=== PATIENT | female | born 1955 | race Caucasian/White ===

== ENCOUNTER 2018-01-23 13:48 | Day surgery (SDC) | payer OTHER ==
[2018-01-23 15:58] LABS: Automated BF WBC Count 0.213 K/mm3 (0-999); Body Fluid WBC Count 213 /mm3 (0-999)
[2018-01-23 16:00] LABS: Appearance, Body Fluid Hazy (Clear); Color, Body Fluid L Yellow (None-Yellow)
[2018-01-23 16:11] LABS: RBC Count, Body Fluid 226 /mm3 (0-0)
[2018-01-23 16:13] LABS: Total Cell Count, Body Fluid 100
[2018-01-23 16:34] LABS: Albumin, Body Fluid 0.4 g/dL
== END 2018-01-23 23:41 | disposition home or self-care (01) ==
LOC: US 13:48
PROVIDERS: Internal Medicine Gastroenterology
PROC: 0W9G3ZZ Drainage of Peritoneal Cavity, Percutaneous Approach (ICD-10-PCS; principal; 2018-01-23)
DX: R18.8 Other ascites (principal); K74.60 Unspecified cirrhosis of liver; E66.01 Morbid (severe) obesity due to excess calories; E03.9 Hypothyroidism, unspecified; I10 Essential (primary) hypertension
CPT/HCPCS: 49083; 82042; 89051

== ENCOUNTER 2018-03-06 10:30 | Day surgery (SDC) | payer OTHER | END 2018-03-06 22:57 | disposition home or self-care (01) | LOC: US 10:30 | DX: R18.8 Other ascites (principal); K74.60 Unspecified cirrhosis of liver | CPT/HCPCS: 76705 ==

== ENCOUNTER 2018-07-01 14:34 | Day surgery (SDC) | payer OTHER ==
[~2018-07-01 14:34] MED LIST: FURO40 PO; GLUCOSAMINE CH1 EAC3 PO; HYDHCL25 PO; IBU800 MG PO; LISI5 PO; LORA1 PO; Lovastatin10 MG PO; Omeprazole20 M1 PO; POTA10T PO; SPIR50 PO; TIZANIDINE HCL2 MG PO
== END 2018-07-01 22:42 | disposition home or self-care (01) ==
LOC: US 14:34
DX: K74.60 Unspecified cirrhosis of liver (principal); R18.8 Other ascites
CPT/HCPCS: 49083

== ENCOUNTER 2018-12-28 15:06 | Day surgery (SDC) | payer OTHER | END 2018-12-28 15:07 | disposition home or self-care (01) | LOC: US 15:06 | DX: R18.8 Other ascites (principal); K74.60 Unspecified cirrhosis of liver; Z53.09 Procedure and treatment not carried out because of other contraindication | CPT/HCPCS: 76705 ==

== ENCOUNTER 2019-03-23 09:48 | Day surgery (SDC) | payer OTHER ==
[~2019-03-23] VITALS: Ht 172.7 cm; Wt 122.4 kg
[2019-03-23] MEDS ORDERED: Inderal40 MG (10:21)
--- NOTE | 2019-03-23 10:34 | NUR ---
03/23/19 1034 Jayna Carter PATIENT HAS SCAB ON BRIDGE OF NOSE BETWEEN EYES, PER PATIENT SHE FELL A COUPLE OF DAYS AGO. PATIENT HAS A BRUISE ON HER NOSE WHERE IT APPEARS HER GLASSES WOULD SIT, THIS IS ALSO FROM THE FALL. PATIENT ALSO STATES THE HER RIBS ON HER LEFT SIDE ALSO HURT, ALSO RELATED TO THE FALL. PATIENT DOES STATE THAT SHE WILL BE ABLE TO LAY ON HER LEFT SIDE "WITH ENOUGH SEDATION."
--- NOTE | 2019-03-23 11:52 | NUR ---
03/23/19 1152 Vanessa Juarez WHEN ASKED IF PT. HAD ANY PAIN, PT. VERBALIZES "FEELS LIKE HEARTBURN." PT. ALSO A LITTLE NAUSEATED, ORDER GIVEN FOR PEDRO VASQUEZ GIVEN 1115. 1121 PT. STATES "NOT TOO BAD" WHEN ASKED IF SHE WAS STILL NAUSEATED. PT. WANTED HER CRANBERRY JUICE. WHEN DRINKING HER CRANBERRY JUICE, SHE STATED "THAT FEELS GOOD". PT. CAME IN WITH BODY HURTING. PT. VERBALIZED FALLING ON HER FACE & ALSO HURT HER SIDE.
== END 2019-03-23 11:35 | disposition home or self-care (01) ==
LOC: ORSCSDS 09:48
PROVIDERS: Internal Medicine Gastroenterology
PROC: 06L38CZ Occlusion of Esophageal Vein with Extraluminal Device, Via Natural or Artificial Opening Endoscopic (ICD-10-PCS; principal; 2019-03-23 11:00)
DX: K74.60 Unspecified cirrhosis of liver (principal); I85.00 Esophageal varices without bleeding; K76.6 Portal hypertension; K31.89 Other diseases of stomach and duodenum; I10 Essential (primary) hypertension; K21.9 Gastro-esophageal reflux disease without esophagitis; E66.01 Morbid (severe) obesity due to excess calories; Z68.41 Body mass index [BMI] 40.0-44.9, adult; Z79.899 Other long term (current) drug therapy
CPT/HCPCS: J2405; J2704; J7120

== ENCOUNTER 2019-10-19 11:32 | Day surgery (SDC) | payer OTHER ==
[~2019-10-19] VITALS: Ht 167.6 cm; Wt 123.8 kg
[~2019-10-19 11:32] MED LIST changes: +ALENDRONAT70 MG/75 M PO; +ELIQUIS5 MG PO; +Inderal 20 mg T20 MG PO; +Inderal40 MG; +LACT10SY PO; +RIFA550T2 PO
== END 2019-10-19 13:38 | disposition home or self-care (01) ==
LOC: ORSCSDS 11:32
PROVIDERS: Internal Medicine Gastroenterology
PROC: 0DBN8ZX Excision of Sigmoid Colon, Via Natural or Artificial Opening Endoscopic, Diagnostic (ICD-10-PCS; principal; 2019-10-19 12:45)
DX: D50.9 Iron deficiency anemia, unspecified (principal); Z86.010 Personal history of colon polyps; D12.5 Benign neoplasm of sigmoid colon; K57.30 Diverticulosis of large intestine without perforation or abscess without bleeding; K74.60 Unspecified cirrhosis of liver; I10 Essential (primary) hypertension; E66.01 Morbid (severe) obesity due to excess calories; Z68.41 Body mass index [BMI] 40.0-44.9, adult; K76.0 Fatty (change of) liver, not elsewhere classified; F17.210 Nicotine dependence, cigarettes, uncomplicated; Z79.899 Other long term (current) drug therapy
CPT/HCPCS: 88305; J2250; J2704; J7120

== ENCOUNTER → 2019-12-04 | Outpatient (CLI) | payer OTHER | END | disposition home or self-care (01) | LOC: LAB SHORT 15:20 → LAB 15:20 | DX: L08.9 Local infection of the skin and subcutaneous tissue, unspecified (principal) | CPT/HCPCS: 87070; 87075; 87077; 87147; 87186; 87205 ==

== ENCOUNTER 2019-12-22 09:55 | Day surgery (SDC) | payer OTHER ==
[~2019-12-22] VITALS: Ht 172.7 cm; Wt 121.8 kg
--- NOTE | 2019-12-22 11:23 | NUR ---
12/22/19 1123 Fanny Forrester PT VERY ANXIOUS IN PREOP. DR SHIPMAN, ANESTHESIOLOGIST AND DR ROSS IN TO SEE PT. VERSED 2MG IV GIVEN PER DR SHIPMAN. PT MONITERED VIA PULSE OXIMETRY. CALL LIGHT WITHIN REACH. SPOUSE TATA AT BEDSIDE. PT STATES SHE FEELS MUCH MORE RELAXED. YAWNING AND ON HER PHONE AT THIS TIME.
== END 2019-12-22 12:32 | disposition home or self-care (01) ==
LOC: ORSCSDS 09:55
PROVIDERS: Internal Medicine Gastroenterology
PROC: 0DB68ZX Excision of Stomach, Via Natural or Artificial Opening Endoscopic, Diagnostic (ICD-10-PCS; principal; 2019-12-22 11:00)
DX: K74.60 Unspecified cirrhosis of liver (principal); I85.00 Esophageal varices without bleeding; I10 Essential (primary) hypertension; F41.9 Anxiety disorder, unspecified; E66.9 Obesity, unspecified; Z68.41 Body mass index [BMI] 40.0-44.9, adult; Z79.01 Long term (current) use of anticoagulants; Z79.899 Other long term (current) drug therapy
CPT/HCPCS: 88305; 88342; J2250; J2704; J7120

== ENCOUNTER 2020-04-21 10:27 | Day surgery (SDC) | payer OTHER | END 2020-04-21 22:56 | disposition home or self-care (01) | LOC: US 10:27 | DX: K74.60 Unspecified cirrhosis of liver (principal); R18.8 Other ascites; D50.9 Iron deficiency anemia, unspecified; I10 Essential (primary) hypertension; M17.12 Unilateral primary osteoarthritis, left knee; G89.29 Other chronic pain; M54.5 Low back pain; F17.210 Nicotine dependence, cigarettes, uncomplicated; E66.9 Obesity, unspecified; Z68.42 Body mass index [BMI] 45.0-49.9, adult; Z79.01 Long term (current) use of anticoagulants; Z79.899 Other long term (current) drug therapy | CPT/HCPCS: 76705 ==

== ENCOUNTER 2020-07-19 12:53 | Emergency (ER) | payer OTHER ==
[~2020-07-19] VITALS: Ht 170.2 cm; Wt 122.5 kg
[2020-07-19 13:24] LABS: BASOPHILS ABSOLUTE AUTO 0.08 K/mm3 (0.00-0.23); BASOPHILS PERCENT AUTO 1 % (0-2); EOSINOPHILS ABSOLUTE AUTO 0.13 K/mm3 (0.00-0.68); EOSINOPHILS PERCENT AUTO 2 % (0-6); Hematocrit 44.1 % (33.0-51.0); IMMATURE GRAN ABSOLUTE AUTO 0.01 K/mm3 (0.00-0.10); IMMATURE GRAN PERCENT AUTO 0 % (0-1); LYMPHOCYTES ABSOLUTE AUTO 1.55 K/mm3 (0.84-5.20); LYMPHOCYTES PERCENT AUTO 23 % (21-46); MONOCYTES ABSOLUTE AUTO 0.79 K/mm3 (0.16-1.47); MONOCYTES PERCENT AUTO 11 % (4-13); Mean Corpuscular HGB 33.8 pg (26.0-34.0); Mean Corpuscular Volume 99 fL (80-100); Mean Platelet Volume 9.7 fL (9.1-12.4); NEUTROPHILS ABSOLUTE AUTO 4.34 K/mm3 (1.96-9.15); NEUTROPHILS PERCENT AUTO 63 % (41-73); Platelet Count 148 K/mm3 (150-400); RDW Coefficient Variation 15.7 % (11.7-14.2); RDW Standard Deviation 57.6 fL (35.1-46.3); Red Blood Cell Count 4.44 M/mm3 (3.80-5.20)
[2020-07-19 13:56] LABS: Alanine Aminotransfer (ALT/SGP 27 U/L (12-78); Albumin, Blood 2.7 g/dL (3.4-5.0); Albumin/Globulin Ratio 0.5 (0.8-1.8); Alk Phos 178 U/L (50-136); Anion Gap 7 mmol/L (6-16); Aspartate Aminotrans (AST/SGOT 59 U/L (12-37); Bilirubin, Total 2.4 mg/dL (0.1-1.0); Blood Urea Nitrogen 11 mg/dL (8-24); Bun/Creatinine Ratio 13.5 (12.0-20.0); CO2, Blood 25 mmol/L (21-32); Calcium, Blood 8.3 mg/dL (8.5-10.1); Chloride, Blood 105 mmol/L (98-108); Creatinine, Blood 0.81 mg/dL (0.40-1.00); Globulin, Blood 5.1 g/dL (2.2-4.0); Glomerular Filtration Rate >60 (60-); Glucose, Blood 129 mg/dL (70-99); Potassium, Blood 4.1 mmol/L (3.5-5.5); Sodium, Blood 137 mmol/L (136-145); Total Protein, Blood 7.8 g/dL (6.4-8.2); Troponin I <0.015 ng/mL (0.000-0.040)
[2020-07-19 17:29] LABS: Influenza A, PCR NEGATIVE (NEGATIVE); Influenza B, PCR NEGATIVE (NEGATIVE); Resp Syncytial Virus, PCR NEGATIVE (NEGATIVE); SARS-Cov-2 (COVID-19) PCR, MMC NEGATIVE (NEGATIVE)
== END 2020-07-19 16:55 | disposition home or self-care (01) ==
LOC: ER 12:53
PROVIDERS: Emergency Medicine; Physician Assistant
DX: J90 Pleural effusion, not elsewhere classified (principal); K76.9 Liver disease, unspecified; I10 Essential (primary) hypertension; F17.210 Nicotine dependence, cigarettes, uncomplicated; Z20.822 Contact with and (suspected) exposure to COVID-19; Z79.01 Long term (current) use of anticoagulants; Z79.899 Other long term (current) drug therapy
CPT/HCPCS: 0241U; 36415; 71045; 80053; 84484; 85025; 93005; 93010; 99285-25

== ENCOUNTER 2020-07-20 09:15 | Day surgery (SDC) | payer OTHER | END 2020-07-20 22:52 | disposition home or self-care (01) | LOC: US 09:15 | DX: J90 Pleural effusion, not elsewhere classified (principal) | CPT/HCPCS: 32555; 71045 ==

== ENCOUNTER 2021-04-25 15:12 | Emergency (ER) | payer MEDICARE, OTHER ==
[~2021-04-25] VITALS: Ht 170.2 cm; Wt 126.5 kg
[2021-04-25 15:58] LABS: BASOPHILS ABSOLUTE AUTO 0.07 K/mm3 (0.00-0.23); BASOPHILS PERCENT AUTO 1 % (0-2); EOSINOPHILS ABSOLUTE AUTO 0.16 K/mm3 (0.00-0.68); EOSINOPHILS PERCENT AUTO 2 % (0-6); Hematocrit 43.3 % (33.0-51.0); Hemoglobin 14.4 g/dL (11.5-16.0); IMMATURE GRAN ABSOLUTE AUTO 0.02 K/mm3 (0.00-0.10); IMMATURE GRAN PERCENT AUTO 0 % (0-1); LYMPHOCYTES ABSOLUTE AUTO 1.66 K/mm3 (0.84-5.20); LYMPHOCYTES PERCENT AUTO 19 % (21-46); MONOCYTES ABSOLUTE AUTO 1.18 K/mm3 (0.16-1.47); MONOCYTES PERCENT AUTO 13 % (4-13); Mean Corpuscular HGB 31.2 pg (26.0-34.0); Mean Corpuscular HGB Conc 33.3 g/dL (31.5-36.5); Mean Corpuscular Volume 94 fL (80-100); Mean Platelet Volume 9.4 fL (9.1-12.4); NEUTROPHILS ABSOLUTE AUTO 5.88 K/mm3 (1.96-9.15); NEUTROPHILS PERCENT AUTO 66 % (41-73); Platelet Count 188 K/mm3 (150-400); RDW Coefficient Variation 15.9 % (11.7-14.2); RDW Standard Deviation 54.2 fL (35.1-46.3); Red Blood Cell Count 4.62 M/mm3 (3.80-5.20); White Blood Cell Count 8.97 K/mm3 (4.00-11.30)
[2021-04-25 16:14] LABS: International Normalized Ratio 1.3; Prothrombin Time Results 13.4 Sec (9.7-11.5)
[2021-04-25 16:31] LABS: Alanine Aminotransfer (ALT/SGP 21 U/L (12-78); Albumin, Blood 2.6 g/dL (3.4-5.0); Albumin/Globulin Ratio 0.5 (0.8-1.8); Alk Phos 141 U/L (50-136); Anion Gap 9 mmol/L (6-16); Aspartate Aminotrans (AST/SGOT 27 U/L (12-37); Bilirubin, Total 1.5 mg/dL (0.1-1.0); Blood Urea Nitrogen 14 mg/dL (8-24); CO2, Blood 22 mmol/L (21-32); Calcium, Blood 8.7 mg/dL (8.5-10.1); Chloride, Blood 106 mmol/L (98-108); Creatinine, Blood 0.94 mg/dL (0.40-1.00); Globulin, Blood 5.1 g/dL (2.2-4.0); Glomerular Filtration Rate >60 (60-); Glucose, Blood 156 mg/dL (70-99); Potassium, Blood 3.5 mmol/L (3.5-5.5); Sodium, Blood 137 mmol/L (136-145); Total Protein, Blood 7.7 g/dL (6.4-8.2)
== END 2021-04-25 18:08 | disposition home or self-care (01) ==
LOC: ER 15:12
PROVIDERS: Physician Assistant
DX: K74.60 Unspecified cirrhosis of liver (principal); J90 Pleural effusion, not elsewhere classified; I10 Essential (primary) hypertension; F17.210 Nicotine dependence, cigarettes, uncomplicated; Z79.899 Other long term (current) drug therapy
CPT/HCPCS: 36415; 80053; 83690; 85025; 85610; 99284-25

== ENCOUNTER 2021-04-27 10:27 | Emergency (ER) | payer MEDICARE, OTHER ==
[~2021-04-27] VITALS: Ht 170.2 cm; Wt 124.7 kg
[2021-04-27 13:18] LABS: BASOPHILS ABSOLUTE AUTO 0.07 K/mm3 (0.00-0.23); BASOPHILS PERCENT AUTO 1 % (0-2); EOSINOPHILS ABSOLUTE AUTO 0.13 K/mm3 (0.00-0.68); EOSINOPHILS PERCENT AUTO 2 % (0-6); Hematocrit 38.9 % (33.0-51.0); Hemoglobin 12.8 g/dL (11.5-16.0); IMMATURE GRAN ABSOLUTE AUTO 0.02 K/mm3 (0.00-0.10); IMMATURE GRAN PERCENT AUTO 0 % (0-1); LYMPHOCYTES ABSOLUTE AUTO 1.35 K/mm3 (0.84-5.20); LYMPHOCYTES PERCENT AUTO 19 % (21-46); MONOCYTES ABSOLUTE AUTO 0.84 K/mm3 (0.16-1.47); MONOCYTES PERCENT AUTO 12 % (4-13); Mean Corpuscular HGB 30.7 pg (26.0-34.0); Mean Corpuscular HGB Conc 32.9 g/dL (31.5-36.5); Mean Corpuscular Volume 93 fL (80-100); Mean Platelet Volume 9.2 fL (9.1-12.4); NEUTROPHILS PERCENT AUTO 66 % (41-73); Platelet Count 145 K/mm3 (150-400); RDW Coefficient Variation 15.6 % (11.7-14.2); RDW Standard Deviation 53.3 fL (35.1-46.3); Red Blood Cell Count 4.17 M/mm3 (3.80-5.20); White Blood Cell Count 7.01 K/mm3 (4.00-11.30)
[2021-04-27 13:28] LABS: Alanine Aminotransfer (ALT/SGP 18 U/L (12-78); Albumin, Blood 2.3 g/dL (3.4-5.0); Albumin/Globulin Ratio 0.5 (0.8-1.8); Alk Phos 118 U/L (50-136); Anion Gap 5 mmol/L (6-16); Aspartate Aminotrans (AST/SGOT 26 U/L (12-37); Bilirubin, Total 1.4 mg/dL (0.1-1.0); Blood Urea Nitrogen 14 mg/dL (8-24); Bun/Creatinine Ratio 15.9 (12.0-20.0); CO2, Blood 25 mmol/L (21-32); Calcium, Blood 8.7 mg/dL (8.5-10.1); Chloride, Blood 108 mmol/L (98-108); Creatinine, Blood 0.88 mg/dL (0.40-1.00); Globulin, Blood 4.6 g/dL (2.2-4.0); Glomerular Filtration Rate >60 (60-); Glucose, Blood 158 mg/dL (70-99); Potassium, Blood 3.9 mmol/L (3.5-5.5); Sodium, Blood 138 mmol/L (136-145); Total Protein, Blood 6.9 g/dL (6.4-8.2)
== END 2021-04-27 15:13 | disposition home or self-care (01) ==
LOC: ER 10:27
PROVIDERS: Student in an Organized Health Care Education/Training Program
DX: J90 Pleural effusion, not elsewhere classified (principal); Z79.899 Other long term (current) drug therapy; I10 Essential (primary) hypertension; F17.210 Nicotine dependence, cigarettes, uncomplicated
CPT/HCPCS: 32555; 36415; 71045; 71046; 80053; 85025

== ENCOUNTER 2021-05-11 12:06 | Emergency (ER) | payer MEDICARE, OTHER ==
[~2021-05-11] VITALS: Ht 170.2 cm; Wt 126.5 kg
[2021-05-11 13:25] LABS: BASOPHILS ABSOLUTE AUTO 0.07 K/mm3 (0.00-0.23); BASOPHILS PERCENT AUTO 1 % (0-2); EOSINOPHILS ABSOLUTE AUTO 0.13 K/mm3 (0.00-0.68); EOSINOPHILS PERCENT AUTO 2 % (0-6); Hematocrit 45.4 % (33.0-51.0); Hemoglobin 15.1 g/dL (11.5-16.0); IMMATURE GRAN ABSOLUTE AUTO 0.03 K/mm3 (0.00-0.10); IMMATURE GRAN PERCENT AUTO 0 % (0-1); LYMPHOCYTES ABSOLUTE AUTO 1.08 K/mm3 (0.84-5.20); LYMPHOCYTES PERCENT AUTO 16 % (21-46); MONOCYTES PERCENT AUTO 10 % (4-13); Mean Corpuscular HGB 30.7 pg (26.0-34.0); Mean Corpuscular HGB Conc 33.3 g/dL (31.5-36.5); Mean Corpuscular Volume 92 fL (80-100); Mean Platelet Volume 9.3 fL (9.1-12.4); NEUTROPHILS PERCENT AUTO 71 % (41-73); Platelet Count 166 K/mm3 (150-400); RDW Coefficient Variation 15.7 % (11.7-14.2); RDW Standard Deviation 52.9 fL (35.1-46.3); Red Blood Cell Count 4.92 M/mm3 (3.80-5.20); White Blood Cell Count 6.91 K/mm3 (4.00-11.30)
[2021-05-11] MEDS ORDERED: Actigall300 MG PO (13:26)
[2021-05-11 13:41] LABS: International Normalized Ratio 1.19; Prothrombin Time Results 12.4 Sec (9.7-11.5)
[2021-05-11 13:51] LABS: Alanine Aminotransfer (ALT/SGP 28 U/L (12-78); Albumin, Blood 2.8 g/dL (3.4-5.0); Albumin/Globulin Ratio 0.5 (0.8-1.8); Alk Phos 130 U/L (50-136); Anion Gap 9 mmol/L (6-16); Aspartate Aminotrans (AST/SGOT 34 U/L (12-37); Bilirubin, Total 1.9 mg/dL (0.1-1.0); Blood Urea Nitrogen 17 mg/dL (8-24); Bun/Creatinine Ratio 18.8 (12.0-20.0); CO2, Blood 24 mmol/L (21-32); Chloride, Blood 104 mmol/L (98-108); Creatinine, Blood 0.91 mg/dL (0.40-1.00); Globulin, Blood 5.3 g/dL (2.2-4.0); Glomerular Filtration Rate >60 (60-); Glucose, Blood 160 mg/dL (70-99); Potassium, Blood 3.6 mmol/L (3.5-5.5); Sodium, Blood 137 mmol/L (136-145); Total Protein, Blood 8.1 g/dL (6.4-8.2)
[2021-05-11 15:55] LABS: Influenza A, PCR NEGATIVE (NEGATIVE); Influenza B, PCR NEGATIVE (NEGATIVE); Resp Syncytial Virus, PCR NEGATIVE (NEGATIVE); SARS-Cov-2 (COVID-19) PCR, MMC NEGATIVE (NEGATIVE)
[2021-05-11] MEDS ORDERED: BENZ100A PO (17:29)
== END 2021-05-11 17:55 | disposition home or self-care (01) ==
LOC: ER 12:06
PROVIDERS: Emergency Medicine; Physician Assistant
DX: J90 Pleural effusion, not elsewhere classified (principal); K74.60 Unspecified cirrhosis of liver; I10 Essential (primary) hypertension; F17.210 Nicotine dependence, cigarettes, uncomplicated; Z79.899 Other long term (current) drug therapy; Z79.01 Long term (current) use of anticoagulants
CPT/HCPCS: 0241U; 32555; 36415; 71045; 71046; 80053; 83880; 84484; 85025; 85610; 85730; 93005; 93010; 99285-25; J7030

== ENCOUNTER 2021-07-04 07:36 | Day surgery (SDC) | payer MEDICARE, OTHER ==
[~2021-07-04] VITALS: Ht 170.2 cm; Wt 118.7 kg
[~2021-07-04 07:36] MED LIST changes: +Actigall300 MG PO; +BENZ100A PO
== END 2021-07-04 09:10 | disposition home or self-care (01) ==
LOC: ORSCSDS 07:36
PROVIDERS: Internal Medicine Gastroenterology
PROC: 0DJ08ZZ Inspection of Upper Intestinal Tract, Via Natural or Artificial Opening Endoscopic (ICD-10-PCS; principal; 2021-07-04 08:45)
DX: K74.60 Unspecified cirrhosis of liver (principal); Z13.810 Encounter for screening for upper gastrointestinal disorder; I85.00 Esophageal varices without bleeding; K76.6 Portal hypertension; K31.89 Other diseases of stomach and duodenum; I10 Essential (primary) hypertension; E66.9 Obesity, unspecified; Z68.41 Body mass index [BMI] 40.0-44.9, adult; F17.210 Nicotine dependence, cigarettes, uncomplicated; Z79.899 Other long term (current) drug therapy; F41.8 Other specified anxiety disorders; Z79.01 Long term (current) use of anticoagulants
CPT/HCPCS: J2250; J2370; J2405; J2704; J7120

== ENCOUNTER 2021-08-21 13:28 | Day surgery (SDC) | payer MEDICARE, OTHER | END 2021-08-21 23:59 | disposition home or self-care (01) | LOC: US 13:28 | DX: J90 Pleural effusion, not elsewhere classified (principal); K74.60 Unspecified cirrhosis of liver; K76.0 Fatty (change of) liver, not elsewhere classified; R18.8 Other ascites | CPT/HCPCS: 32555; 71045 ==

== ENCOUNTER 2021-09-04 14:26 | Day surgery (SDC) | payer MEDICARE, OTHER | END 2021-09-04 23:07 | disposition home or self-care (01) | LOC: US 14:26 | DX: J90 Pleural effusion, not elsewhere classified (principal); K74.60 Unspecified cirrhosis of liver; K76.0 Fatty (change of) liver, not elsewhere classified; R18.8 Other ascites | CPT/HCPCS: 32555; 71045 ==

== ENCOUNTER 2021-09-08 16:44 | Inpatient (IN) | payer MEDICARE, OTHER ==
[~2021-09-08] VITALS: Ht 170.2 cm; Wt 107.2 kg
[2021-09-08 17:17] LABS: Source, Urine Clean Catch
[2021-09-08 17:26] LABS: Appearance, Urine Clear (Clear); Bilirubin, Urine Neg (Neg); Blood, Urine 1+ (Neg); Color, Urine Yellow (P-Yellow); Glucose Qualitative, Urine Neg (Neg); Ketones, Urine Neg (Neg); Leukocyte Esterase, Urine Neg (Neg); Nitrite, Urine Neg (Neg); Protein, Urine Neg (Neg); Specific Gravity, Urine 1.015 (1.003-1.022); Urobilinogen, Urine 2+ (Normal)
[2021-09-08 17:29] LABS: BASOPHILS ABSOLUTE AUTO 0.11 K/mm3 (0.00-0.23); BASOPHILS PERCENT AUTO 1 % (0-2); EOSINOPHILS ABSOLUTE AUTO 0.76 K/mm3 (0.00-0.68); EOSINOPHILS PERCENT AUTO 5 % (0-6); Hematocrit 41.2 % (33.0-51.0); IMMATURE GRAN ABSOLUTE AUTO 0.14 K/mm3 (0.00-0.10); IMMATURE GRAN PERCENT AUTO 1 % (0-1); LYMPHOCYTES ABSOLUTE AUTO 2.03 K/mm3 (0.84-5.20); LYMPHOCYTES PERCENT AUTO 13 % (21-46); MONOCYTES ABSOLUTE AUTO 1.81 K/mm3 (0.16-1.47); MONOCYTES PERCENT AUTO 11 % (4-13); Mean Corpuscular HGB 31.5 pg (26.0-34.0); Mean Corpuscular Volume 93 fL (80-100); Mean Platelet Volume 8.8 fL (9.1-12.4); NEUTROPHILS PERCENT AUTO 70 % (41-73); Platelet Count 158 K/mm3 (150-400); RDW Coefficient Variation 18.5 % (11.7-14.2); RDW Standard Deviation 61.7 fL (35.1-46.3); Red Blood Cell Count 4.44 M/mm3 (3.80-5.20); White Blood Cell Count 16.15 K/mm3 (4.00-11.30)
[2021-09-08 17:38] LABS: White Blood Cells, Urine 0-2 /hpf (0-5)
[2021-09-08 17:39] LABS: Bacteria Mod /hpf; Squamous Epithelial Cells Few /hpf (Few)
[2021-09-08] MEDS ORDERED: Enulose10 GM/15 M PO (17:40)
[2021-09-08 17:47] LABS: Alanine Aminotransfer (ALT/SGP 47 U/L (12-78); Albumin, Blood 2.3 g/dL (3.4-5.0); Albumin/Globulin Ratio 0.5 (0.8-1.8); Alk Phos 200 U/L (50-136); Anion Gap 4 mmol/L (6-16); Aspartate Aminotrans (AST/SGOT 46 U/L (12-37); Bilirubin, Total 3.3 mg/dL (0.1-1.0); Blood Urea Nitrogen 18 mg/dL (8-24); Bun/Creatinine Ratio 21.1 (12.0-20.0); CO2, Blood 26 mmol/L (21-32); Calcium, Blood 8.2 mg/dL (8.5-10.1); Chloride, Blood 102 mmol/L (98-108); Creatinine, Blood 0.85 mg/dL (0.40-1.00); Globulin, Blood 4.5 g/dL (2.2-4.0); Glomerular Filtration Rate >60 (60-); Glucose, Blood 116 mg/dL (70-99); Potassium, Blood 3.7 mmol/L (3.5-5.5); Sodium, Blood 132 mmol/L (136-145); Total Protein, Blood 6.8 g/dL (6.4-8.2)
--- NOTE | 2021-09-08 23:31 | NUR ---
PATIENT IS A NEW ADMIT FROM THE ED. FOUR PERSON TRANSFER FROM [facility] TO BED. AXOX 3 WITH CONFUSION. KNOWS PERSON, PLACE, YEAR, NO MONTH. REPEATS QUESTIONS WHEN ANSWER ALREADY GIVEN. ON ROOM AIR. BP SOFT 81/59. ORDER FOR MIDODRINE 10 MG X ONE GIVEN. BOLUS NS 250 mL IN PROGRESS. ORIENTED TO ROOM AND CALL LIGHT SYSTEM. NIECE PRESENT ON ADMIT AND SIGNIFICANT OTHER ON PHONE TO HELP WITH ADMISSION QUESTIONS, PSORIASIS SCATTERED T/O CHEST/ABDOMEN. BRUISNG T/O BUE. REPORTS NO TV AFTER ASSESSMENT AND WANTS TO SLEEP. CALL LIGHT IN REACH.
--- NOTE | 2021-09-09 04:15 | NUR ---
SHIFT SUMMARY PATIENT AXOX 3 WITH CONFUSION ASKING QUESTIONS ALREADY ANSWERED. FORGETFUL. TWO ASSIST W/FWW TO BSC. BP 81/59 WITH ED RN REPORTING PATIENT BASELINE IS SBP 70'S-80'S. ED DOCTOR AWARE. MIDODRINE 10 MG GIVEN X ONE ON ADMIT PER ORDERS. NS BOLUS 250 mL GIVEN X ONE ON ADMIT. SCHEDULE ENULOSE. PATIENT REPORTS ON TWO DIURECTICS. PSORIASIS SCATTER T/O CHEST/ABDOMEN. DENIES PAIN, SOB, AND N/V. AFEBRILE. PATIENT ABLE TO SLEEP MOST OF SHIFT. CALL LIGHT IN REACH. BED IN LOWEST POSITION. WILL CONTINUE TO MONITOR UNTIL DAY SHIFT NURSE ASSUMES CARE.
[2021-09-09 05:24] LABS: Hematocrit 36.2 % (33.0-51.0); Hemoglobin 12.5 g/dL (11.5-16.0); Mean Corpuscular HGB 31.6 pg (26.0-34.0); Mean Corpuscular HGB Conc 34.5 g/dL (31.5-36.5); Mean Corpuscular Volume 92 fL (80-100); Mean Platelet Volume 8.4 fL (9.1-12.4); Platelet Count 111 K/mm3 (150-400); RDW Coefficient Variation 18.2 % (11.7-14.2); RDW Standard Deviation 60.3 fL (35.1-46.3); Red Blood Cell Count 3.95 M/mm3 (3.80-5.20)
--- NOTE | 2021-09-09 06:04 | NUR ---
BP 73/[address] ANDREW ORDERED NS 500 mL BOLUS X ONE. BP 81/50 ON ADMIT AND 250 mL NS BOLUS GIVEN AND MIDODRINE 10 MG X ONE.
--- NOTE | 2021-09-09 08:15 | NUR ---
CALLED DR SCHMITZ- PT BP LOW AND GETTING LOWER. PT ASYMPPTOMATIC AT THIS TIME. ORDER RECIEVED FOR AN ADDITIONAL 500ML FLUID BOLUS. RUNNING NOW.
--- NOTE | 2021-09-09 17:24 | NUR ---
SPOKE TO DR SCHMITZ- PPT HAD TWO SOFT FORMED LARGE BM'S THIS MORNING FOLLOWED BY THREE DIFFERENT WATERY STOOLS THIS EVENING. WILL HOLD THIS EVENING LACTULOSE DOSE. OK TO NOT GIVE ANY MORE LACTULOSE TODAY AND RECIEVED AN ORDER TO CHANGE TO TID DOSING AT 30GM. MALENASO SPOKE TO MD ABOUT THE PT RECENT PRESSURES, DR HENLEY AND WANTS TO TRY NO MORE MIDODRENE NOW THAT PT IS OFF HER PROPRANOLOL DOSE.
--- NOTE | 2021-09-09 19:04 | NUR ---
SHIFT SUMMARY- PT ALERT AND ORIENTED 1PA TO THE BATHROOM. PT HAD LACTULOSE TODAY AND IS NOW HAVING FREQUENT WATERY STOOLS. PT HAS PICKED A COUPLE OF SCABS OFF OF THE MULTIPLE ON HER ABDOMEN AIR QUALITY INSTRUMENT SPECIALIST ASSISTED AND PLACED A MEPILEX OVER THE TWO OPEN AREAS NEAR THE PT NAVEL. PT HAS HAD IMPROVED COGNITION T/O THE SHIFT. SAY DC'D TODAY BY . PT IN THE ROOM IN BED, CALL LIGHT IN REACH NO S&S OF DISTRESS NOTED AT THIS TIME REPORT COMPLETED WITH NIGHT RN.
--- NOTE | 2021-09-10 04:14 | NUR ---
SHIFT SUMMARY PATIENT MENTATION IMPROVED SINCE LAST NOC SHIFT. BP'S IMPROVED T/O SHIFT. 109/60 AND LAST 127/84. ABLE TO COMMUNICATE CLEARLY. AXOX 3 AND ONE ASSIST TO BR. DENIES PAIN, SOB, AND N/V. VSS/AFEBRILE. WATCHED TV AND ON PERSONAL ELECTRONIC DEVICE MOST OF THE SHIFT. SIGNIFICANT OTHER PRESENT AT SHIFT CHANGE. CALL LIGHT IN REACH. BED IN LOWEST POSITION. WILL CONTINUE TO MONITOR UNTIL DAY SHIFT NURSE ASSUMES CARE.
[2021-09-10 05:22] LABS: BASOPHILS ABSOLUTE AUTO 0.14 K/mm3 (0.00-0.23); BASOPHILS PERCENT AUTO 1 % (0-2); EOSINOPHILS ABSOLUTE AUTO 0.98 K/mm3 (0.00-0.68); EOSINOPHILS PERCENT AUTO 5 % (0-6); Hematocrit 36.7 % (33.0-51.0); Hemoglobin 12.4 g/dL (11.5-16.0); IMMATURE GRAN ABSOLUTE AUTO 0.15 K/mm3 (0.00-0.10); IMMATURE GRAN PERCENT AUTO 1 % (0-1); LYMPHOCYTES PERCENT AUTO 12 % (21-46); MONOCYTES ABSOLUTE AUTO 2.16 K/mm3 (0.16-1.47); MONOCYTES PERCENT AUTO 11 % (4-13); Mean Corpuscular HGB 31.4 pg (26.0-34.0); Mean Corpuscular HGB Conc 33.8 g/dL (31.5-36.5); Mean Corpuscular Volume 93 fL (80-100); Mean Platelet Volume 8.4 fL (9.1-12.4); NEUTROPHILS ABSOLUTE AUTO 13.86 K/mm3 (1.96-9.15); NEUTROPHILS PERCENT AUTO 70 % (41-73); Platelet Count 122 K/mm3 (150-400); RDW Coefficient Variation 18.1 % (11.7-14.2); Red Blood Cell Count 3.95 M/mm3 (3.80-5.20); White Blood Cell Count 19.69 K/mm3 (4.00-11.30)
[2021-09-10 05:59] LABS: Alanine Aminotransfer (ALT/SGP 36 U/L (12-78); Albumin, Blood 2.1 g/dL (3.4-5.0); Albumin/Globulin Ratio 0.5 (0.8-1.8); Alk Phos 203 U/L (50-136); Anion Gap 6 mmol/L (6-16); Aspartate Aminotrans (AST/SGOT 32 U/L (12-37); Blood Urea Nitrogen 14 mg/dL (8-24); Bun/Creatinine Ratio 18.7 (12.0-20.0); CO2, Blood 23 mmol/L (21-32); Calcium, Blood 8.3 mg/dL (8.5-10.1); Chloride, Blood 100 mmol/L (98-108); Creatinine, Blood 0.75 mg/dL (0.40-1.00); Globulin, Blood 3.9 g/dL (2.2-4.0); Glomerular Filtration Rate >60 (60-); Glucose, Blood 114 mg/dL (70-99); Magnesium, Blood 2.3 mg/dL (1.6-2.4); Potassium, Blood 4.1 mmol/L (3.5-5.5); Sodium, Blood 129 mmol/L (136-145)
--- NOTE | 2021-09-10 11:15 | NUR ---
PT GIVEN 250 ML BOLUS OF NS DUE TO SBP OF 87. PT BP NOW 122/65. PT A/O X 4 REPORTS SHE DOES NOT HAVE SYMPTOMS OF DIZZISNESS, NO SIGNS OF LETHARGY AT THIS TIME.
[2021-09-10] MEDS ORDERED: SERT25 PO (15:11)
[2021-09-10] MEDS ORDERED: Vitamin D1000 UNI1 PO (15:13)
[2021-09-10] MEDS ORDERED: OYSTER SHELL 51 EACH PO (15:14)
--- NOTE | 2021-09-10 15:59 | NUR ---
PT FAMILY BROUGHT IN MEDICATION LIST FROM HOME. RECONCILED MEDICATION LIST AND ADDED ZOLOFT IT WAS NOT ON OUR LIST.
--- NOTE | 2021-09-10 17:28 | NUR ---
SHIFT SUMMARY: PT A/O X 4 STANDBY ASSIST, PLEASANT AND COOPERATIVE WITH CARES. PT HAD LOW SBP LESS THAN 90 TODAY. BOLUS OF NS 250 MLS GIVEN AND BP STABLE POST ADMINISTRATION. PT GIVEN LACTULOSE X 2 DOSES TODAY AND HAD 3 BM'S. AFTERNOON DOSE HELD. PT CONTINUES TO IMPROVE. PT DOWN FOR X-RAY AT THIS TIME.
[2021-09-11 05:15] LABS: BASOPHILS ABSOLUTE AUTO 0.09 K/mm3 (0.00-0.23); BASOPHILS PERCENT AUTO 1 % (0-2); EOSINOPHILS ABSOLUTE AUTO 0.69 K/mm3 (0.00-0.68); EOSINOPHILS PERCENT AUTO 4 % (0-6); Hematocrit 31.4 % (33.0-51.0); Hemoglobin 10.8 g/dL (11.5-16.0); IMMATURE GRAN ABSOLUTE AUTO 0.14 K/mm3 (0.00-0.10); IMMATURE GRAN PERCENT AUTO 1 % (0-1); LYMPHOCYTES ABSOLUTE AUTO 1.73 K/mm3 (0.84-5.20); LYMPHOCYTES PERCENT AUTO 10 % (21-46); MONOCYTES ABSOLUTE AUTO 1.63 K/mm3 (0.16-1.47); MONOCYTES PERCENT AUTO 10 % (4-13); Mean Corpuscular HGB 32.2 pg (26.0-34.0); Mean Corpuscular HGB Conc 34.4 g/dL (31.5-36.5); Mean Corpuscular Volume 94 fL (80-100); Mean Platelet Volume 8.3 fL (9.1-12.4); NEUTROPHILS ABSOLUTE AUTO 12.52 K/mm3 (1.96-9.15); NEUTROPHILS PERCENT AUTO 75 % (41-73); Platelet Count 104 K/mm3 (150-400); RDW Coefficient Variation 18.1 % (11.7-14.2); RDW Standard Deviation 61.1 fL (35.1-46.3); Red Blood Cell Count 3.35 M/mm3 (3.80-5.20)
[2021-09-11 05:46] LABS: Alanine Aminotransfer (ALT/SGP 32 U/L (12-78); Albumin, Blood 1.8 g/dL (3.4-5.0); Albumin/Globulin Ratio 0.5 (0.8-1.8); Alk Phos 183 U/L (50-136); Anion Gap 7 mmol/L (6-16); Aspartate Aminotrans (AST/SGOT 31 U/L (12-37); Bilirubin, Total 3.4 mg/dL (0.1-1.0); Blood Urea Nitrogen 10 mg/dL (8-24); Bun/Creatinine Ratio 14.1 (12.0-20.0); CO2, Blood 20 mmol/L (21-32); Calcium, Blood 8.1 mg/dL (8.5-10.1); Chloride, Blood 101 mmol/L (98-108); Creatinine, Blood 0.71 mg/dL (0.40-1.00); Globulin, Blood 3.4 g/dL (2.2-4.0); Glomerular Filtration Rate >60 (60-); Glucose, Blood 174 mg/dL (70-99); Potassium, Blood 4.3 mmol/L (3.5-5.5); Sodium, Blood 128 mmol/L (136-145); Total Protein, Blood 5.2 g/dL (6.4-8.2)
--- NOTE | 2021-09-11 07:18 | NUR ---
SHIFT SUMMARY AOX3. FORGETFUL. NEEDED FREQUENT REMINDING OF TASKS SHE IS PERFORMING @TIMES. REPORTED SEEING "EARRINGS" IN THE BED, WHEN THE SHEETS WERE WRINKLED. HAVING VISUAL HALLUCINATIONS. VSS. DENIES N/V, DYSPNEA. REPORTED PAIN IN LUQ ABD WITH PRESSURE OR REPOSITIONING IN BED, STATED IT WAS "LIVER PAIN" MEDICATED 1X c TIZANIDINE & PT STILL AWAKE T/O ENTIRE NIGHT, FINALLY FELL ASLEEP THIS AM AROUND 0700. NO BM TONIGHT. CALL LIGHT IN REACH.
--- NOTE | 2021-09-11 19:33 | NUR ---
SHIFT SUMMARY: PT A/OX4 STANDBY ASSIST STEADY ON FEET WITH WALKER. PT PLEASANT AND COOPERATIVE WITH CARE. PT HAD NO BM BY EVENING, MIRALAX ORDERED. PT DENIED SYMPTOMS OF PAIN IN ABD T/OUT THE DAY. ATE WELL AND COMPLIANT WITH FLUID RESTRICTION.
[2021-09-12 05:30] LABS: BASOPHILS PERCENT AUTO 1 % (0-2); EOSINOPHILS ABSOLUTE AUTO 0.78 K/mm3 (0.00-0.68); EOSINOPHILS PERCENT AUTO 6 % (0-6); Hematocrit 32.9 % (33.0-51.0); Hemoglobin 11.3 g/dL (11.5-16.0); IMMATURE GRAN ABSOLUTE AUTO 0.15 K/mm3 (0.00-0.10); IMMATURE GRAN PERCENT AUTO 1 % (0-1); LYMPHOCYTES ABSOLUTE AUTO 1.84 K/mm3 (0.84-5.20); LYMPHOCYTES PERCENT AUTO 14 % (21-46); MONOCYTES ABSOLUTE AUTO 1.39 K/mm3 (0.16-1.47); MONOCYTES PERCENT AUTO 10 % (4-13); Mean Corpuscular HGB 31.8 pg (26.0-34.0); Mean Corpuscular HGB Conc 34.3 g/dL (31.5-36.5); Mean Corpuscular Volume 93 fL (80-100); Mean Platelet Volume 7.9 fL (9.1-12.4); NEUTROPHILS PERCENT AUTO 69 % (41-73); Platelet Count 110 K/mm3 (150-400); RDW Coefficient Variation 18.4 % (11.7-14.2); RDW Standard Deviation 61.4 fL (35.1-46.3); Red Blood Cell Count 3.55 M/mm3 (3.80-5.20); White Blood Cell Count 13.56 K/mm3 (4.00-11.30)
[2021-09-12 05:43] LABS: International Normalized Ratio 1.42; Prothrombin Time Results 14.6 Sec (9.7-11.5)
[2021-09-12 06:04] LABS: Alanine Aminotransfer (ALT/SGP 33 U/L (12-78); Albumin, Blood 1.9 g/dL (3.4-5.0); Albumin/Globulin Ratio 0.5 (0.8-1.8); Alk Phos 192 U/L (50-136); Anion Gap 6 mmol/L (6-16); Aspartate Aminotrans (AST/SGOT 33 U/L (12-37); Bilirubin, Total 2.8 mg/dL (0.1-1.0); Blood Urea Nitrogen 9 mg/dL (8-24); CO2, Blood 24 mmol/L (21-32); Calcium, Blood 7.8 mg/dL (8.5-10.1); Chloride, Blood 102 mmol/L (98-108); Creatinine, Blood 0.75 mg/dL (0.40-1.00); Globulin, Blood 3.5 g/dL (2.2-4.0); Glomerular Filtration Rate >60 (60-); Glucose, Blood 121 mg/dL (70-99); Potassium, Blood 3.5 mmol/L (3.5-5.5); Sodium, Blood 132 mmol/L (136-145); Total Protein, Blood 5.4 g/dL (6.4-8.2)
--- NOTE | 2021-09-12 06:35 | NUR ---
SHIFT SUMMARY AOX4. VSS. NO VISUAL HALLUCINATIONS THIS SHIFT. HAD 2 LRG-MED FORMED BM THIS SHIFT. AMMONIA DECREASED TO 44. REPORTED 5/10 PAIN IN RUQ ABD WITH PALPATION OR PRESSURE, MEDICATED 1X c TIZANIDINE PT STATES PAIN GOES AWAY AFTER REPOSITIONING. PT ABLE TO SLEEP WELL TONIGHT AFTER TAKING MELATONIN. CLEANSED OPEN SCAB, SCRATCH WOUNDS ON ABD & APPLIED CLEAN BANDAGES. POSSIBLE DC HOME TODAY. CALL LIGHT IN REACH & PT ABLE TO MAKE NEEDS KNOWN. WILL MONITOR.
[2021-09-12] MEDS ORDERED: Midodrine HCl2.5 MG PO (13:18)
[2021-09-12] MEDS ORDERED: CEFP200 PO (13:19)
[2021-09-12] MEDS ORDERED: MIRALAX17 GM PO (13:19)
--- NOTE | 2021-09-12 13:55 | NUR ---
Patient is a [facility] patient who was transferred to [facility] on 09/08/2021 due to acute hepatic encephalopathy. Patient is to discharge with resumption of home health orders. Gathered supporting documentation for resumption (face sheet, discharge order, med list, and H&P) and faxed to [facility] for review. No further interventions required. Tonya Beck Referral Liaison
--- NOTE | 2021-09-12 14:24 | NUR ---
DISCHARGE SUMMARY: PT TATA PRESENT DURING DISCUSSION OF DISCHARGE MEDICATIONS AND INSTRUCTIONS. PT AND TATA VU OF INSTRUCTIONS AND MEDICATIONS. PT ASSISTED WITH PACKING BELONGINGS AND GIVEN 1400 MEDICATIONS PRIOR TO LEAVING. PT ESCORTED TO POV VIA WC BY [facility]KE.
--- NOTE | 2021-09-12 16:56 | NUR ---
Per Dr. Clinton discharge appropriate. Patient and did not oppose discharge. Patient discharged home to residence: [address] [facility] Home Health Liaison notified of discharge. Date of discharge: 09/12/2021 Transportation provided by: Family/ [facility] Ordered: none ordered Follow-ups needed: [facility] will contact patient to schedule hospital follow-up visit. Provider/PCP: Dr. Antionette Coles [facility] When: WITHIN 1 WEEK Specialty: Dr. Levi/[facility] Confirmed numbers: Patient [phone] [facility]: [phone] Comment: Explained to patient to contact PCP if any questions regarding medication management, social service needs, and if condition worsens go to Urgent Care/ER. No barriers to discharge. Patient has family support. Explained importance of follow-up appointment for improved health outcomes and to decrease readmission.
== END 2021-09-12 14:15 | disposition home health service (06) | DRG 442 ==
LOC: ER 16:44 → MEDS 16:45
PROVIDERS: Emergency Medicine; Family Medicine; Hospitalist; Nurse Practitioner Acute Care; ADMIT Internal Medicine
DX: K72.00 Acute and subacute hepatic failure without coma (principal); J90 Pleural effusion, not elsewhere classified; K70.30 Alcoholic cirrhosis of liver without ascites; K72.10 Chronic hepatic failure without coma; K21.9 Gastro-esophageal reflux disease without esophagitis; F41.9 Anxiety disorder, unspecified; E78.5 Hyperlipidemia, unspecified; E66.01 Morbid (severe) obesity due to excess calories; Z90.49 Acquired absence of other specified parts of digestive tract; Z98.890 Other specified postprocedural states; Z79.899 Other long term (current) drug therapy; I95.9 Hypotension, unspecified; Z90.710 Acquired absence of both cervix and uterus; Z68.37 Body mass index [BMI] 37.0-37.9, adult
CPT/HCPCS: 36415; 70450; 71045; 71046; 76705; 80053; 81001; 82140; 82947; 83735; 85025; 85027; 85610; 87040; 87086; 93005; 93010; 97116; 97161; 97165; 97535; 99285-25; A9270; G0378; J0696; J7030; J7050

== ENCOUNTER 2021-09-29 11:44 | Emergency (ER) | payer MEDICARE, OTHER ==
[~2021-09-29] VITALS: Ht 170.2 cm; Wt 122.5 kg
[~2021-09-29 11:44] MED LIST changes: +CEFP200 PO; +Enulose10 GM/15 M PO; +MIRALAX17 GM PO; +Midodrine HCl2.5 MG PO; +OYSTER SHELL 51 EACH PO; +SERT25 PO; +Vitamin D1000 UNI1 PO
[2021-09-29 12:36] LABS: BASOPHILS ABSOLUTE AUTO 0.07 K/mm3 (0.00-0.23); BASOPHILS PERCENT AUTO 1 % (0-2); EOSINOPHILS ABSOLUTE AUTO 0.23 K/mm3 (0.00-0.68); EOSINOPHILS PERCENT AUTO 3 % (0-6); Hematocrit 31.8 % (33.0-51.0); Hemoglobin 10.5 g/dL (11.5-16.0); IMMATURE GRAN ABSOLUTE AUTO 0.03 K/mm3 (0.00-0.10); IMMATURE GRAN PERCENT AUTO 0 % (0-1); LYMPHOCYTES ABSOLUTE AUTO 1.15 K/mm3 (0.84-5.20); LYMPHOCYTES PERCENT AUTO 15 % (21-46); MONOCYTES ABSOLUTE AUTO 0.63 K/mm3 (0.16-1.47); MONOCYTES PERCENT AUTO 8 % (4-13); Mean Corpuscular HGB 33.4 pg (26.0-34.0); Mean Corpuscular Volume 101 fL (80-100); Mean Platelet Volume 8.7 fL (9.1-12.4); NEUTROPHILS ABSOLUTE AUTO 5.35 K/mm3 (1.96-9.15); NEUTROPHILS PERCENT AUTO 72 % (41-73); Platelet Count 117 K/mm3 (150-400); RDW Coefficient Variation 20.1 % (11.7-14.2); RDW Standard Deviation 72.9 fL (35.1-46.3); Red Blood Cell Count 3.14 M/mm3 (3.80-5.20); White Blood Cell Count 7.46 K/mm3 (4.00-11.30)
[2021-09-29 12:52] LABS: Alanine Aminotransfer (ALT/SGP 24 U/L (12-78); Albumin, Blood 1.9 g/dL (3.4-5.0); Albumin/Globulin Ratio 0.5 (0.8-1.8); Alk Phos 156 U/L (50-136); Anion Gap 10 mmol/L (6-16); Aspartate Aminotrans (AST/SGOT 36 U/L (12-37); Bilirubin, Total 3.1 mg/dL (0.1-1.0); Blood Urea Nitrogen 9 mg/dL (8-24); Bun/Creatinine Ratio 13.3 (12.0-20.0); CO2, Blood 22 mmol/L (21-32); Calcium, Blood 7.9 mg/dL (8.5-10.1); Chloride, Blood 105 mmol/L (98-108); Creatinine, Blood 0.68 mg/dL (0.40-1.00); Globulin, Blood 3.6 g/dL (2.2-4.0); Glomerular Filtration Rate >60 (60-); Glucose, Blood 161 mg/dL (70-99); Potassium, Blood 3.7 mmol/L (3.5-5.5); Sodium, Blood 137 mmol/L (136-145); Total Protein, Blood 5.5 g/dL (6.4-8.2)
== END 2021-09-29 14:03 | disposition home or self-care (01) ==
LOC: ER 11:44
PROVIDERS: Physician Assistant
DX: K76.9 Liver disease, unspecified (principal); Z79.899 Other long term (current) drug therapy; I10 Essential (primary) hypertension; F17.210 Nicotine dependence, cigarettes, uncomplicated
CPT/HCPCS: 36415; 74177; 80053; 85025; 99284-25; Q9967

== ENCOUNTER 2021-10-02 14:53 | Day surgery (SDC) | payer MEDICARE, OTHER | END 2021-10-02 23:50 | disposition home or self-care (01) | LOC: US 14:53 | DX: J90 Pleural effusion, not elsewhere classified (principal); K74.60 Unspecified cirrhosis of liver; K76.0 Fatty (change of) liver, not elsewhere classified; R18.8 Other ascites | CPT/HCPCS: 32555; 71045 ==

== ENCOUNTER 2021-10-09 14:31 | Day surgery (SDC) | payer MEDICARE, OTHER | END 2021-10-09 23:27 | disposition home or self-care (01) | LOC: US 14:31 | DX: J90 Pleural effusion, not elsewhere classified (principal); J98.11 Atelectasis; K76.0 Fatty (change of) liver, not elsewhere classified; K74.60 Unspecified cirrhosis of liver; R18.8 Other ascites | CPT/HCPCS: 32555; 71045 ==

== ENCOUNTER 2021-10-15 10:36 | Day surgery (SDC) | payer MEDICARE, OTHER | END 2021-10-15 23:31 | disposition home or self-care (01) | LOC: US 10:36 | DX: J90 Pleural effusion, not elsewhere classified (principal); R18.8 Other ascites; K74.60 Unspecified cirrhosis of liver; K76.0 Fatty (change of) liver, not elsewhere classified | CPT/HCPCS: 32555; 71045 ==

== ENCOUNTER 2021-10-31 08:21 | Day surgery (SDC) | payer MEDICARE, OTHER | END 2021-10-31 23:29 | disposition home or self-care (01) | LOC: US 08:21 | DX: J90 Pleural effusion, not elsewhere classified (principal); K74.60 Unspecified cirrhosis of liver; R18.8 Other ascites | CPT/HCPCS: 32555; 71045 ==

== ENCOUNTER → 2022-02-08 | Outpatient (CLI) | payer MEDICARE, OTHER | END | disposition home or self-care (01) | LOC: LAB SHORT 17:12 | DX: R10.9 Unspecified abdominal pain (principal) | CPT/HCPCS: 87086; 87106 ==

== ENCOUNTER 2022-02-15 12:22 | Day surgery (SDC) | payer MEDICARE, OTHER ==
[~2022-02-15] VITALS: Ht 170.2 cm; Wt 115.7 kg
[2022-02-15] MEDS ORDERED: LORA.5 (13:09)
[2022-02-15] MEDS ORDERED: FURO40 (13:09)
[2022-02-15] MEDS ORDERED: MIRALAX17 GM (13:09)
[2022-02-15] MEDS ORDERED: ZOLEDRONIC ACID (13:10)
[2022-02-15] MEDS ORDERED: TRAM50 (13:10)
== END 2022-02-15 14:53 | disposition home or self-care (01) ==
LOC: ORSCSDS 12:22
PROVIDERS: Internal Medicine Gastroenterology
PROC: 0DJ08ZZ Inspection of Upper Intestinal Tract, Via Natural or Artificial Opening Endoscopic (ICD-10-PCS; principal; 2022-02-15 13:45)
DX: D50.0 Iron deficiency anemia secondary to blood loss (chronic) (principal); K74.60 Unspecified cirrhosis of liver; I85.00 Esophageal varices without bleeding; K31.7 Polyp of stomach and duodenum; G47.33 Obstructive sleep apnea (adult) (pediatric); K75.81 Nonalcoholic steatohepatitis (NASH); E03.9 Hypothyroidism, unspecified; F17.210 Nicotine dependence, cigarettes, uncomplicated; I73.9 Peripheral vascular disease, unspecified; Z79.01 Long term (current) use of anticoagulants; E66.9 Obesity, unspecified; Z68.39 Body mass index [BMI] 39.0-39.9, adult
CPT/HCPCS: J2704; J7120

== ENCOUNTER 2022-12-09 10:21 | Emergency (ER) | payer MEDICARE, OTHER ==
[~2022-12-09] VITALS: Ht 170.2 cm; Wt 127.0 kg
[~2022-12-09 10:21] MED LIST changes: +FURO40; +LORA.5; +MIRALAX17 GM; +TRAM50; +ZOLEDRONIC ACID
[2022-12-09 14:52] VITALS: BP 104/55
== END 2022-12-09 15:37 | disposition home or self-care (01) ==
LOC: ER 10:21
DX: R53.81 Other malaise (principal); Z79.899 Other long term (current) drug therapy; I10 Essential (primary) hypertension; F17.210 Nicotine dependence, cigarettes, uncomplicated
CPT/HCPCS: 96372; 99283-25; J2920; J3360

== ENCOUNTER 2022-12-29 02:40 | Emergency (ER) | payer MEDICARE, OTHER ==
[~2022-12-29] VITALS: Ht 170.2 cm; Wt 127.0 kg
[2022-12-29 02:56] VITALS: BP 115/65
== END 2022-12-29 03:20 | disposition home or self-care (01) ==
LOC: ER 02:40
DX: M54.16 Radiculopathy, lumbar region (principal); I10 Essential (primary) hypertension; F17.210 Nicotine dependence, cigarettes, uncomplicated; Z79.01 Long term (current) use of anticoagulants
CPT/HCPCS: 96374; 99283-25; A9270; J1885

== ENCOUNTER 2023-05-13 14:21 | Emergency (ER) | payer MEDICARE, OTHER ==
[~2023-05-13] VITALS: Ht 167.6 cm; Wt 127.0 kg
[2023-05-13 17:59] LABS: Albumin, Blood 2.1 g/dL (3.4-5.0); Albumin/Globulin Ratio 0.5 (0.8-1.8); Bilirubin, Total 2.8 mg/dL (0.1-1.0); Bun/Creatinine Ratio 23.6 (12.0-20.0); Calcium, Blood 8.3 mg/dL (8.5-10.1); Creatinine, Blood 0.59 mg/dL (0.40-1.00); Globulin, Blood 4.4 g/dL (2.2-4.0); Potassium, Blood 3.6 mmol/L (3.5-5.5); Total Protein, Blood 6.5 g/dL (6.4-8.2)
[2023-05-13 18:39] LABS: Source, Urine Foley catheter
[2023-05-13 18:42] LABS: Appearance, Urine Turbid (Clear); Bilirubin, Urine Neg (Neg); Blood, Urine 4+ (Neg); Color, Urine Amber (P-Yellow); Glucose Qualitative, Urine Neg (Neg); Ketones, Urine Neg (Neg); Leukocyte Esterase, Urine 3+ (Neg); Nitrite, Urine Neg (Neg); Protein, Urine 3+ (Neg); Specific Gravity, Urine 1.015 (1.003-1.022); Urobilinogen, Urine 3+ (Normal)
[2023-05-13 18:54] LABS: White Blood Cells, Urine TNTC /hpf (0-5)
[2023-05-13 18:55] LABS: Hyaline Casts 0-2 /lpf (0-2)
[2023-05-13 18:56] LABS: Bacteria Many /hpf; Squamous Epithelial Cells Rare /hpf (Few)
[2023-05-13 19:54] LABS: BASOPHILS ABSOLUTE AUTO 0.05 K/mm3 (0.00-0.23); BASOPHILS PERCENT AUTO 1 % (0-2); EOSINOPHILS ABSOLUTE AUTO 0.15 K/mm3 (0.00-0.68); EOSINOPHILS PERCENT AUTO 2 % (0-6); Hematocrit 35.9 % (33.0-51.0); Hemoglobin 11.3 g/dL (11.5-16.0); IMMATURE GRAN ABSOLUTE AUTO 0.06 K/mm3 (0.00-0.10); IMMATURE GRAN PERCENT AUTO 1 % (0-1); LYMPHOCYTES ABSOLUTE AUTO 1.44 K/mm3 (0.84-5.20); LYMPHOCYTES PERCENT AUTO 15 % (21-46); MONOCYTES ABSOLUTE AUTO 1.05 K/mm3 (0.16-1.47); MONOCYTES PERCENT AUTO 11 % (4-13); Mean Corpuscular HGB 31.3 pg (26.0-34.0); Mean Corpuscular HGB Conc 31.5 g/dL (31.5-36.5); Mean Corpuscular Volume 99 fL (80-100); Mean Platelet Volume 10.2 fL (9.1-12.4); NEUTROPHILS ABSOLUTE AUTO 7.13 K/mm3 (1.96-9.15); NEUTROPHILS PERCENT AUTO 72 % (41-73); Platelet Count 145 K/mm3 (150-400); RDW Coefficient Variation 27.4 % (11.7-14.2); RDW Standard Deviation 95.7 fL (35.1-46.3); Red Blood Cell Count 3.61 M/mm3 (3.80-5.20); White Blood Cell Count 9.88 K/mm3 (4.00-11.30)
[2023-05-13] MEDS ORDERED: CEPH500 PO ×2 (20:19→20:25)
[2023-05-13 20:58] VITALS: BP 120/39
== END 2023-05-13 21:30 | disposition home or self-care (01) ==
LOC: ER 14:21
PROVIDERS: Student in an Organized Health Care Education/Training Program
DX: N39.0 Urinary tract infection, site not specified (principal); F17.210 Nicotine dependence, cigarettes, uncomplicated; I10 Essential (primary) hypertension; Z79.01 Long term (current) use of anticoagulants; Z79.899 Other long term (current) drug therapy; Z96.0 Presence of urogenital implants
CPT/HCPCS: 51702; 80053; 81001; 83605; 85025; 93005; 93010; 96360; 99284-25; A9270; J7030

== ENCOUNTER 2023-05-20 12:33 | Day surgery (SDC) | payer MEDICARE, OTHER ==
[~2023-05-20] VITALS: Ht 170.2 cm; Wt 127.0 kg
[~2023-05-20 12:33] MED LIST changes: +CEPH500 PO; -LORA.5; +LORA.5 PO; +OMEP20ER PO
[2023-05-20] MEDS ORDERED: OXYC5 PO (15:52)
[2023-05-20 16:10] VITALS: BP 117/77
[2023-05-20 16:15] VITALS: BP 121/76
[2023-05-20 16:38] VITALS: BP 136/86
[2023-05-20 18:15] VITALS: BP 110/74
--- NOTE | 2023-05-20 18:20 | NUR ---
PT TO RECOVERY ROOM POST PROCEDURE. PT AWAKE AND CONVERSING APPROPRIATELY; DENIES PAIN AT SITE POST PROCEDURE. HR 81, B/P 110/74, SPO2 100% RA. SUPRAPUBIC CATH SITE NO SWELLING/HEMATOMA, STAY FIX DRSG INTACT, CONNECTED TO DRAIN BAG-DRAINING YELLOW URINE WITH SEDIMENT. PT'S AT BEDSIDE, ATTENTIVE.
--- NOTE | 2023-05-20 18:35 | NUR ---
PT DRESSED WITH ASSISTANCE, IV REMOVED-CANNULA INTACT. PT DONNA ASSIST TO W/C.
--- NOTE | 2023-05-20 18:43 | NUR ---
PT AND SPOUSE RECEIVED DISCHARGE INSTRUCTIONS, MED LIST AND AFTER CARE INSTRUCTIONS; VERBALIZED GOOD UNDERSTANDING. PT LEFT FACILITY VIA W/C TRANSPORT, CONDITION STABLE.
--- NOTE | 2023-05-20 18:55 | NUR ---
REPORT TO SONNY MERINO AT [facility]; ALL QUESTIONS ANSWERED.
== END 2023-05-20 22:42 | disposition home or self-care (01) ==
LOC: MHTC 12:33
DX: N39.0 Urinary tract infection, site not specified (principal); R33.9 Retention of urine, unspecified; R26.9 Unspecified abnormalities of gait and mobility; E66.01 Morbid (severe) obesity due to excess calories; Z99.3 Dependence on wheelchair; Z68.41 Body mass index [BMI] 40.0-44.9, adult
CPT/HCPCS: 51102; 76937; 99152; 99153; C1729; C1769; J2060; J2250; J3010; J7040; Q9967

== ENCOUNTER 2023-05-31 11:34 | Emergency (ER) | payer MEDICARE, OTHER ==
[~2023-05-31] VITALS: Ht 170.2 cm; Wt 117.9 kg
[~2023-05-31 11:34] MED LIST changes: +OXYC5 PO
[2023-05-31] MEDS ORDERED: Florastor250 MG (12:05)
[2023-05-31] MEDS ORDERED: LIDO700A20 (12:06)
[2023-05-31] MEDS ORDERED: ASCO500 (12:08)
[2023-05-31] MEDS ORDERED: FERSU300 PO (12:09)
[2023-05-31] MEDS ORDERED: GABA100 PO (12:10)
[2023-05-31] MEDS ORDERED: SODBIC650 PO (12:11)
[2023-05-31] MEDS ORDERED: HYDR1TAB94 PO (12:12)
[2023-05-31 13:30] LABS: Appearance, Urine Turbid (Clear); Bilirubin, Urine Neg (Neg); Blood, Urine 5+ (Neg); Color, Urine Yellow (P-Yellow); Glucose Qualitative, Urine Neg (Neg); Ketones, Urine Neg (Neg); Leukocyte Esterase, Urine 3+ (Neg); Nitrite, Urine Pos (Neg); Protein, Urine 3+ (Neg); Specific Gravity, Urine 1.015 (1.003-1.022); Urobilinogen, Urine NORM (Normal)
[2023-05-31 13:42] LABS: Bacteria Many /hpf; Squamous Epithelial Cells Rare /hpf (Few); White Blood Cells, Urine TNTC /hpf (0-5)
[2023-05-31] MEDS ORDERED: CEFD300 PO (14:02)
[2023-05-31 14:04] VITALS: BP 115/58
== END 2023-05-31 16:20 | disposition home or self-care (01) ==
LOC: ER 11:34
PROVIDERS: Emergency Medicine
DX: T83.038A Leakage of other urinary catheter, initial encounter (principal); N39.0 Urinary tract infection, site not specified; Z79.899 Other long term (current) drug therapy; I10 Essential (primary) hypertension; F17.210 Nicotine dependence, cigarettes, uncomplicated
CPT/HCPCS: 81001; 87077; 87086; 87186; 99283; A9270

== ENCOUNTER 2023-06-27 16:51 | Emergency (ER) | payer MEDICARE, OTHER ==
[~2023-06-27] VITALS: Ht 167.6 cm; Wt 131.1 kg
[~2023-06-27 16:51] MED LIST changes: +ASCO500; +CEFD300 PO; +FERSU300 PO; +Florastor250 MG; +GABA100 PO; +HYDR1TAB94 PO; +LIDO700A20; +SODBIC650 PO
[2023-06-27 18:30] VITALS: BP 112/91
== END 2023-06-27 21:20 | disposition home or self-care (01) ==
LOC: ER 16:51
DX: T83.098A Other mechanical complication of other urinary catheter, initial encounter (principal); I10 Essential (primary) hypertension; F17.210 Nicotine dependence, cigarettes, uncomplicated; Z87.09 Personal history of other diseases of the respiratory system; Z79.01 Long term (current) use of anticoagulants; Z79.899 Other long term (current) drug therapy; Y73.2 Prosthetic and other implants, materials and accessory gastroenterology and urology devices associated with adverse incidents
CPT/HCPCS: 51702; 51798; 99283

== ENCOUNTER 2023-12-10 13:43 | Inpatient (IN) | payer MEDICARE, OTHER ==
[~2023-12-10] VITALS: Ht 172.7 cm; Wt 139.0 kg
[~2023-12-10 13:43] MED LIST changes: +ALDACTONE100 MG PO; +CIPR500 PO; +COLESTID1 G1 PO; +CONSTULOSE10 GM/15 M PO; +ERGO50000 PO; -Enulose10 GM/15 M PO; -FURO40; -LIDO700A20; +LIDO700A20 TOP; -SERT25 PO; +SERT50 PO; -SPIR50 PO; +TIZANIDINE HCL213 PO; -Vitamin D1000 UNI1 PO
[2023-12-10 14:26] LABS: Albumin, Blood 2.4 g/dL (3.4-5.0); Albumin/Globulin Ratio 0.6 (0.8-1.8); BASOPHILS ABSOLUTE AUTO 0.09 K/mm3 (0.00-0.23); BASOPHILS PERCENT AUTO 0 % (0-2); Bilirubin, Total 6.6 mg/dL (0.1-1.0); Bun/Creatinine Ratio 14.5 (12.0-20.0); Calcium, Blood 8.3 mg/dL (8.5-10.1); Creatinine, Blood 0.69 mg/dL (0.40-1.00); EOSINOPHILS ABSOLUTE AUTO 0.07 K/mm3 (0.00-0.68); EOSINOPHILS PERCENT AUTO 0 % (0-6); Globulin, Blood 4.2 g/dL (2.2-4.0); Hematocrit 44.9 % (33.0-51.0); Hemoglobin 15.7 g/dL (11.5-16.0); IMMATURE GRAN ABSOLUTE AUTO 0.18 K/mm3 (0.00-0.10); IMMATURE GRAN PERCENT AUTO 1 % (0-1); LYMPHOCYTES ABSOLUTE AUTO 1.44 K/mm3 (0.84-5.20); LYMPHOCYTES PERCENT AUTO 7 % (21-46); MONOCYTES ABSOLUTE AUTO 0.94 K/mm3 (0.16-1.47); MONOCYTES PERCENT AUTO 5 % (4-13); Mean Corpuscular HGB 36.9 pg (26.0-34.0); Mean Corpuscular Volume 105 fL (80-100); Mean Platelet Volume 9.4 fL (9.1-12.4); NEUTROPHILS ABSOLUTE AUTO 17.46 K/mm3 (1.96-9.15); NEUTROPHILS PERCENT AUTO 87 % (41-73); NRBC ABSOLUTE 0.02 K/mm3 (0.00-0.02); NRBC Auto 0.1 /100 WBC (0.0-0.2); Platelet Count 128 K/mm3 (150-400); Potassium, Blood 3.7 mmol/L (3.5-5.5); RDW Coefficient Variation 15.6 % (11.7-14.2); Red Blood Cell Count 4.26 M/mm3 (3.80-5.20); Total Protein, Blood 6.6 g/dL (6.4-8.2); White Blood Cell Count 20.18 K/mm3 (4.00-11.30)
[2023-12-10] MEDS ORDERED: NS 1,000 ML IV SCH ×3 (14:50→19:15)
[2023-12-10] MEDS ORDERED: CefTRIAXone Sodium 1,000 MG in NS 50 ML IV ONE (15:50)
[2023-12-10 16:30] LABS: Influenza A, PCR NEGATIVE (NEGATIVE); Influenza B, PCR NEGATIVE (NEGATIVE); Resp Syncytial Virus, PCR NEGATIVE (NEGATIVE); SARS-Cov-2 (COVID-19) PCR, MMC NEGATIVE (NEGATIVE)
[2023-12-10 16:44] LABS: Source, Urine Foley catheter
[2023-12-10 17:04] LABS: Appearance, Urine Hazy (Clear); Blood, Urine 5+ (Neg); Color, Urine Amber (P-Yellow); Glucose Qualitative, Urine Neg (Neg); Ketones, Urine 1+ (Neg); Leukocyte Esterase, Urine 3+ (Neg); Nitrite, Urine Pos (Neg); Protein, Urine 3+ (Neg); Urobilinogen, Urine 1+ (Normal)
[2023-12-10 17:26] LABS: Bilirubin, Urine 1+ (Neg)
[2023-12-10 17:27] LABS: Bacteria Many /hpf; Mucus Light (0-Heavy); Red Blood Cells, Urine 50-100 /hpf (0-2); Renal Epithelial Rare /hpf (0-Rare); Squamous Epithelial Cells Many /hpf (Few); Transitional Epithelial Cells Few /hpf (0-Rare); White Blood Cells, Urine TNTC /hpf (0-5)
[2023-12-10] MEDS ORDERED: Ondansetron HCl 2 MG / ML 2ML Vial IV PRN (19:15)
[2023-12-10] MEDS ORDERED: Acetaminophen 500 MG Tab PO PRN (19:20)
[2023-12-10] MEDS ORDERED: Lactulose 20 GM/30 ML UDC PO SCH (20:00)
[2023-12-10] MEDS ORDERED: Azithromycin 500 MG in NS 250 ML IV SCH (20:00)
[2023-12-10] MEDS ORDERED: Sodium Bicarbonate 650 MG Tab PO SCH (21:00)
[2023-12-10] MEDS ORDERED: Lactobacil 2-S.Thermo-Bifido 1 1 Cap PO SCH (21:00)
[2023-12-10 21:20] VITALS: BP 81/52
[2023-12-11] VITALS (9 sets, daily range): BP systolic 107–146; BP diastolic 48–80
[2023-12-11 02:55] LABS: BASOPHILS ABSOLUTE AUTO 0.08 K/mm3 (0.00-0.23); BASOPHILS PERCENT AUTO 0 % (0-2); EOSINOPHILS ABSOLUTE AUTO 0.01 K/mm3 (0.00-0.68); EOSINOPHILS PERCENT AUTO 0 % (0-6); Hematocrit 40.3 % (33.0-51.0); Hemoglobin 13.7 g/dL (11.5-16.0); IMMATURE GRAN ABSOLUTE AUTO 0.39 K/mm3 (0.00-0.10); IMMATURE GRAN PERCENT AUTO 1 % (0-1); LYMPHOCYTES PERCENT AUTO 4 % (21-46); MONOCYTES ABSOLUTE AUTO 2.01 K/mm3 (0.16-1.47); MONOCYTES PERCENT AUTO 6 % (4-13); Mean Corpuscular Volume 109 fL (80-100); Mean Platelet Volume 9.7 fL (9.1-12.4); NEUTROPHILS ABSOLUTE AUTO 31.08 K/mm3 (1.96-9.15); NEUTROPHILS PERCENT AUTO 89 % (41-73); Platelet Count 99 K/mm3 (150-400); RDW Coefficient Variation 15.9 % (11.7-14.2); RDW Standard Deviation 64.3 fL (35.1-46.3); White Blood Cell Count 34.87 K/mm3 (4.00-11.30)
[2023-12-11 03:15] LABS: Albumin, Blood 2.1 g/dL (3.4-5.0); Albumin/Globulin Ratio 0.6 (0.8-1.8); Bilirubin, Total 8.9 mg/dL (0.1-1.0); Bun/Creatinine Ratio 18.5 (12.0-20.0); Calcium, Blood 7.7 mg/dL (8.5-10.1); Creatinine, Blood 0.76 mg/dL (0.40-1.00); Globulin, Blood 3.8 g/dL (2.2-4.0); Magnesium, Blood 1.4 mg/dL (1.6-2.4); Potassium, Blood 3.5 mmol/L (3.5-5.5); Total Protein, Blood 5.9 g/dL (6.4-8.2)
[2023-12-11 03:42] LABS: Adenovirus F 40/41 Not Detected (NOT DETECT); Astrovirus Not Detected (NOT DETECT); Campylobacter Sp Not Detected (NOT DETECT); Cryptosporidium Not Detected (NOT DETECT); Cyclospora Cayetanensis Not Detected (NOT DETECT); E. Coli O157 Not Detected (NOT DETECT); Entamoeba Histolytica Not Detected (NOT DETECT); Enteroaggregative E. coli-EAEC Not Detected (NOT DETECT); Enteropathogenic E. coli-EPEC Not Detected (NOT DETECT); Enterotoxigenic E. coli-ETEC Not Detected (NOT DETECT); Giardia Lamblia Not Detected (NOT DETECT); Norovirus GI/GII Not Detected (NOT DETECT); Plesiomonas Shigelloides Not Detected (NOT DETECT); Rotavirus A Not Detected (NOT DETECT); Salmonella Sp Not Detected (NOT DETECT); Sapovirus Not Detected (NOT DETECT); Shiga Toxin-prod E. coli-STEC Not Detected (NOT DETECT); Shigella/Enteroin E. coli-EIEC Not Detected (NOT DETECT); Vibrio Cholerae Not Detected (NOT DETECT); Vibrio Sp Not Detected (NOT DETECT); Yersinia Enterocolitica Not Detected (NOT DETECT)
[2023-12-11] MEDS ORDERED: NS 1,000 ML IV ONE (05:20)
[2023-12-11] MEDS ORDERED: NS 1,000 ML IV SCH (05:25)
--- NOTE | 2023-12-11 05:51 | NUR ---
SHIFT SUMMARY ASSUMED CARE OF PT AT 2130. PT WAS INITIAL A/OX4 UPON ARRIVAL TO UNIT BUT UPON ADMISSION HX, PT WAS A POOR HISTORIAN AND WOULD ASK FOR THINGS ON HER NIGHT STAND, SUCH HER BLACK BAG AND THEN REMEMBER SHE WAS AT THE HOSPITAL. HEART SOUNDS TACHY, PT HAD TWO RUNS OF SVT. LUNG SOUNDS DIMINISHED AT BASES. PT HAS CHRONIC DÍAZ WITH ORANGE URINE. PT IS HAVING MULTIPLE LOOSE JELLY-LIKE BM WITH STREAKS OF BLOOD, SAMPLE SENT. PT HAS MULTIPLE SCABS ON BODY. PT SCRATCHES THEM AND MAKES THEM BLEED. PT IS UNABLE TO USE LEGS. PT BEDBOUND AT [facility]. PT LACTIC CAME BACK CRITICAL, HOSPITALIST AWARE AND REVIEWS CHART AND TALKED WITH PT IN ROOM.
[2023-12-11] MEDS ORDERED: Omeprazole 20 MG CapCR PO SCH (06:00)
[2023-12-11] MEDS ORDERED: Insulin Human Lispro 100 Units/ML 3ML Syringe SC SCH (07:30)
[2023-12-11] MEDS ORDERED: Sodium Bicarb 8.4% 1 MEQ/ML 50 ML Vial IV ONE (08:00)
[2023-12-11] MEDS ORDERED: Mag Sulfate 1 GM/D5% 100ML 100 ML IV STA (08:54)
[2023-12-11] MEDS ORDERED: Enoxaparin 40 MG/0.4 ML SYR SC SCH (09:00)
--- NOTE | 2023-12-11 10:56 | NUR ---
UPDATE DURING MORNING ASSESSMENT, PT ABLE TO ANSWER ORIENTATION QUESTIONS APPROPIATELY. THROUGHOUT THE MORNING, PT CONSTANTLY REQUESTED TO "GET BOOSTED UP SO MY HEAD DOESN'T HIT THE HEAD BOARD." THIS RN INFORMED PT THAT SHE WAS ALREADY BOOSTED AND ASKED IF SHE WANTED TO BE SLID DOWN AT ALL, PT RESPONDED "NO I NEED TO GET MY HEAD AWAY FROM THE HEAD BOARD." PT INFORMED OF WHERE THE HEAD BAORD WAS COMPARED TO WHERE SHE LAYING. PT FAMILY CAME TO VISIT. PT SOILED BED AND WAS RECIEVING BED CHANGE, SON STEPPED OUT. PT WAS BEING CLEANED UP AND BED CHANGED, THIS RN ASKED PT WHO HER VISITORS WERE. PT ANSWERED HER DAUGHTER'S NAME CORRECTLY. THIS RN ASKED ABOUT THE OTHER VISITOR, PT NOT AWARE OF ANOTHER VISITOR. PT'S DAUGHTER ASKED "MOM, WHO WAS THE JAM WHO GAVE YOU A BIG 'OL HUG WHEN WE GOT HERE?" PT GAVE WRONG NAME OF GENTLEMAN THAT WAS IN THE HALLWAY. PT'S DAUGHTER INFORMED PT THAT HER SON WAS THE PERSON WHO GAVE HER A HUG THIS MORNING. PT ABLE TO GIVE CORRECT NAME AT THIS POINT.
--- NOTE | 2023-12-11 11:50 | NUR ---
update: Pt was given a bedbath. While being moved up in bed Pt caught her L hand in side rail and had a skin tear. Wound was cleaned and dressed with medipor dressing. Pt also had rectal tube placed per orders.
[2023-12-11] MEDS ORDERED: Vancomycin HCL 2,500 MG in NS 500 ML IV ONE (12:15)
[2023-12-11] MEDS ORDERED: Lactulose 20 GM/30 ML UDC PO SCH (14:00)
--- NOTE | 2023-12-11 17:56 | NUR ---
SHIFT SUMMARY PT A/OX3, SOME CONFUSION. PT ABLE TO ANSWER ORIENTATION QUESTIONS CORRECTLY POSSIBLY FROM FREQUENTLY BEING ASKED. PT ENDORSED SOME CONFUSION WHEN FAMILY WAS PRESENT AND THIS EVENING. PT VSS THROUGHOUT SHIFT WITH O2 SATS IN BENITO 90'S ON RA. NO REPORT OF CHEST PAIN/PRESSURE THROUGHOUT SHIFT. NO REPORT OF SOB/DYSPNEA THROUGHOUT SHIFT. PT HAD MANY LOOSE BM'S THIS SHIFT, RECTAL TUBE WAS POLACED BUT PULLED ACCIDENTLY BY PT. PT ABLE TO ASSIST WITH TURNS AND BED CHANGES. DÍAZ REMAINED IN PLACE DRAINING TO GRAVITY.
[2023-12-11] MEDS ORDERED: CefTRIAXone Sodium 1,000 MG in NS 100 ML IV SCH (18:00)
[2023-12-11] MEDS ORDERED: HYDROcodone 5-APAP 325 TAB PO PRN (21:00)
--- NOTE | 2023-12-11 21:21 | NUR ---
CALLED RESIDENT DR. VILLALOBOS TO DISCUSS PT. PT WAS COMPLAINING OF LEFT HIP PAIN. PER HOME MED REC, APPEARS TO TAKE 5-325 NORCO Q6. RESTARTED HOME DOSAGE. ALSO INQUIRED ABOUT SUDDENLY INCREASED HR. PT CONTINUES TO RUN SINUS BUT AT ABOUT ~2014 PT HR INCREASED FROM RUNNING IN THE ~100s TO SUSTAINING IN THE ~130s. REVIEWED LABS TO FIND THAT MORNING MAGNESIUM AND POTASSIUM WERE ON THE LOW SIDE OF NORMAL. INQUIRED ABOUT GETTING REPEAT LABS NOW. RESIDENT INFORMED SHE WILL PUT ORDERS IN NOW. CONTINUING TO MONITOR.
[2023-12-11 22:11] LABS: Albumin, Blood 2.3 g/dL (3.4-5.0); Albumin/Globulin Ratio 0.6 (0.8-1.8); Bilirubin, Total 8.2 mg/dL (0.1-1.0); Bun/Creatinine Ratio 15.8 (12.0-20.0); Creatinine, Blood 0.82 mg/dL (0.40-1.00); Globulin, Blood 3.7 g/dL (2.2-4.0); Potassium, Blood 2.8 mmol/L (3.5-5.5)
[2023-12-11 22:43] LABS: Phosphorus, Blood 1.4 mg/dL (2.5-4.9)
[2023-12-11] MEDS ORDERED: Potassium Chloride 10 Meq Tablet SA PO SCH (23:00)
[2023-12-11] MEDS ORDERED: Potassium Phosphate Dibasic 30 MM in Dextrose 5% 500 ML IV ONE (23:15)
[2023-12-12] MEDS ORDERED: Vancomycin HCL 1,500 MG in NS 250 ML IV SCH
[2023-12-12 03:20] VITALS: BP 128/80
--- NOTE | 2023-12-12 04:30 | NUR ---
SHIFT SUMMARY. PT MENTATION HAS FLUCTUATED THROUGHOUT SHIFT. AT SHIFT ASSESSMENT, WAS AOX3-4 BUT THROUGHOUT THE NIGHT HAS BECOME SEEMINGLY MORE CONFUSED BUT IS AT TIMES MORE LUCID. HR WAS ELEVATED THROUGHOUT MOST OF SHIFT BUT HAS BEEN SLOWLY TRENDING DOWN OVER THE COURSE OF THE MORNING. SEE RELATED NOTE FOR DETAILS. PAIN HAS BEEN MOSTLY ADEQUATELY MANAGED THROUGHOUT SHIFT. TELE ON THROUGHOUT SHIFT, NO RHYTHM CHANGES BUT HR HAS BEEN ELEVATED. PT HAS BEEN INCONTINENT OF BM THROUGHOUT SHIFT, 2 THUS FAR. ASSISTS WITH TURNING AND CHANGING. CHRONIC DÍAZ REMAINS IN PLACE, DRAINING TO GRAVITY WITH NO COMPLAINTS OF PAIN/DISCOMFORT. POTASSIUM REPLACED OVERNIGHT. CALL LIGHT LEFT WITHIN REACH. BED LOCKED IN LOWEST POSITION. CONTINUING TO MONITOR.
[2023-12-12 04:39] LABS: BASOPHILS ABSOLUTE AUTO 0.03 K/mm3 (0.00-0.23); BASOPHILS PERCENT AUTO 0 % (0-2); EOSINOPHILS PERCENT AUTO 0 % (0-6); Hematocrit 39.4 % (33.0-51.0); Hemoglobin 13.4 g/dL (11.5-16.0); IMMATURE GRAN ABSOLUTE AUTO 0.38 K/mm3 (0.00-0.10); IMMATURE GRAN PERCENT AUTO 2 % (0-1); LYMPHOCYTES ABSOLUTE AUTO 0.58 K/mm3 (0.84-5.20); LYMPHOCYTES PERCENT AUTO 3 % (21-46); MONOCYTES ABSOLUTE AUTO 1.54 K/mm3 (0.16-1.47); MONOCYTES PERCENT AUTO 7 % (4-13); Mean Corpuscular HGB 36.9 pg (26.0-34.0); Mean Corpuscular Volume 109 fL (80-100); Mean Platelet Volume 9.5 fL (9.1-12.4); NEUTROPHILS ABSOLUTE AUTO 20.55 K/mm3 (1.96-9.15); NEUTROPHILS PERCENT AUTO 89 % (41-73); NRBC ABSOLUTE 0.02 K/mm3 (0.00-0.02); NRBC Auto 0.1 /100 WBC (0.0-0.2); Platelet Count 107 K/mm3 (150-400); RDW Coefficient Variation 15.9 % (11.7-14.2); RDW Standard Deviation 63.3 fL (35.1-46.3); Red Blood Cell Count 3.63 M/mm3 (3.80-5.20); White Blood Cell Count 23.08 K/mm3 (4.00-11.30)
[2023-12-12 05:16] LABS: Albumin, Blood 2.1 g/dL (3.4-5.0); Albumin/Globulin Ratio 0.6 (0.8-1.8); Bilirubin, Direct 4.6 mg/dL (0.0-0.3); Bilirubin, Total 8.6 mg/dL (0.1-1.0); Bun/Creatinine Ratio 19.7 (12.0-20.0); Calcium, Blood 7.4 mg/dL (8.5-10.1); Creatinine, Blood 0.71 mg/dL (0.40-1.00); Globulin, Blood 3.6 g/dL (2.2-4.0); Phosphorus, Blood 2.5 mg/dL (2.5-4.9); Potassium, Blood 3.1 mmol/L (3.5-5.5); Total Protein, Blood 5.7 g/dL (6.4-8.2)
[2023-12-12 07:42] VITALS: BP 121/46
[2023-12-12] MEDS ORDERED: Potassium Chloride 20 MEQ TabCR PO ONE (09:00)
[2023-12-12] MEDS ORDERED: Spironolactone 50 MG Tab PO SCH (09:00)
[2023-12-12] MEDS ORDERED: Sodium Bicarbonate 650 MG Tab PO SCH (09:00)
[2023-12-12] MEDS ORDERED: Furosemide 40 MG Tab PO SCH (09:00)
[2023-12-12 11:33] VITALS: BP 130/62
--- NOTE | 2023-12-12 13:05 | NUR ---
INSTRUCTED THIS RN TO HOLD MORNING DOSE OF LACTULOSE BUT TO LEAVE CURRENT ORDER OF TID. THIS RN CONTACTED MD AT 1300 ASKING IF MD WOULD LIKE 1400 LACTULOSE DOSE GIVEN. MD ASKED IF PT RECIEVED ANY LACTULOSE TODAY, MD INFORMED THAT PT HAS NOT RECIEVED A DOSE THIS SHIFT. MD INSTRUCTED THIS RN TO GIVE ONE DOSE TODAY.
--- NOTE | 2023-12-12 15:02 | NUR ---
ASSUMPTION OF CARE Pt resting in bed, working with occupational therapy, significant other at bedside.
[2023-12-12 15:45] VITALS: BP 126/51
--- NOTE | 2023-12-12 17:26 | NUR ---
EVENING INSULIN Held dinner AC dose of insulin (1 unit), pt was very sleepy and reported being too tired to eat.
[2023-12-12 19:33] VITALS: BP 103/65
[2023-12-12 23:23] LABS: Vancomycin, Trough 19.8 ug/mL (5.0-10.0)
[2023-12-13 01:59] VITALS: BP 126/72
[2023-12-13] MEDS ORDERED: Vancomycin HCL 2,000 MG in NS 500 ML IV SCH (05:00)
[2023-12-13 05:54] LABS: Albumin, Blood 1.9 g/dL (3.4-5.0); Albumin/Globulin Ratio 0.5 (0.8-1.8); Bilirubin, Total 7.6 mg/dL (0.1-1.0); Bun/Creatinine Ratio 17.3 (12.0-20.0); Calcium, Blood 7.6 mg/dL (8.5-10.1); Creatinine, Blood 0.69 mg/dL (0.40-1.00); Globulin, Blood 3.5 g/dL (2.2-4.0); Potassium, Blood 3.2 mmol/L (3.5-5.5); Total Protein, Blood 5.4 g/dL (6.4-8.2)
[2023-12-13] MEDS ORDERED: Potassium Chloride 20 MEQ TabCR PO ONE (07:35)
[2023-12-13] MEDS ORDERED: Mag Sulfate 1 GM/D5% 100ML 100 ML IV STA (14:08)
[2023-12-13 14:48] VITALS: BP 122/57
--- NOTE | 2023-12-13 16:28 | NUR ---
SHIFT SUMMARY PATIENT IN BED THIS SHIFT, ABLE TO MAKE MODERATE CHANGES TO BODY POSITION WHILE IN BED, DÍAZ DRAINING TO GRAVITY, DARK SHANI COLORED. C/O PAIN TO BACK, GIVEN NORCO WITH GOOD RELIEF, DOESN'T TOLERATE LAYING ON BACK. TELE REPORTS SEVERAL EPISODES OF SVT, DOCTOR VERA MADE AWARE, LABS ORDERED, MAG IV ORDERED AND GIVEN. PATIENT TOLERATED WELL. LIVER US PERFORMED THIS AFTERNOON. CALL LIGHT IN REACH, SPOUSE IN ROOM. ABLE TO MAKE NEEDS KNOWN. CARES ONGOING.
[2023-12-13 19:31] VITALS: BP 134/68
[2023-12-14 04:34] LABS: Hemoglobin 11.9 g/dL (11.5-16.0); Mean Corpuscular HGB 36.2 pg (26.0-34.0); Mean Corpuscular Volume 106 fL (80-100); Mean Platelet Volume 9.7 fL (9.1-12.4); Platelet Count 107 K/mm3 (150-400); RDW Coefficient Variation 15.6 % (11.7-14.2); RDW Standard Deviation 61.1 fL (35.1-46.3); Red Blood Cell Count 3.29 M/mm3 (3.80-5.20); White Blood Cell Count 18.65 K/mm3 (4.00-11.30)
[2023-12-14 04:40] VITALS: BP 126/52
[2023-12-14 04:54] LABS: Alanine Aminotransfer (ALT/SGP 30 U/L (12-78); Albumin, Blood 1.9 g/dL (3.4-5.0); Albumin/Globulin Ratio 0.5 (0.8-1.8); Alk Phos 109 U/L (50-136); Anion Gap 10 mmol/L (3-11); Aspartate Aminotrans (AST/SGOT 40 U/L (12-37); Bilirubin, Total 7.4 mg/dL (0.1-1.0); Blood Urea Nitrogen 11 mg/dL (8-24); Bun/Creatinine Ratio 17.7 (12.0-20.0); CO2, Blood 24 mmol/L (21-32); Calcium, Blood 7.4 mg/dL (8.5-10.1); Chloride, Blood 107 mmol/L (98-108); Creatinine, Blood 0.62 mg/dL (0.40-1.00); Globulin, Blood 3.5 g/dL (2.2-4.0); Glomerular Filtration Rate 98 (60-); Glucose, Blood 107 mg/dL (70-99); Potassium, Blood 2.8 mmol/L (3.5-5.5); Sodium, Blood 138 mmol/L (136-145); Total Protein, Blood 5.4 g/dL (6.4-8.2); Vancomycin, Trough 14.2 ug/mL (5.0-10.0)
--- NOTE | 2023-12-14 06:12 | NUR ---
SHIFT SUMMARY PT. IS A&O X4, ABLE TO MAKE HER NEEDS KNOWN. 3-4 LOOSE STOOLS DURING THIS SHIFT. ATTENDS AND MULTIPLE BED PAD CHANGES. RED COLOR URINE DRAINING IN DÍAZ CATH. DÍAZ SECURELY IN PLACE. PT.REPORTS 10/10 PAIN; CHRONIC BACK AND LEFT HIP. MEDICATED TWICE DURING THIS SHIFT (SEE EMAR.) PT. HAS MULTIPLE REQUESTS WHEN STAFF IN THE ROOM. NO ACUTE DISTRESS/EVENTS DURING THIS SHIFT. CALL LIGHT IN REACH. WILL HANDOFF TO THE INCOMING SHIFT NURSE.
[2023-12-14 07:22] VITALS: BP 115/57
[2023-12-14] MEDS ORDERED: Potassium Chloride 20 MEQ TabCR PO ONE ×3 (07:45→13:50)
[2023-12-14] MEDS ORDERED: Ciprofloxacin 500 MG Tab PO SCH (09:00)
[2023-12-14] MEDS ORDERED: Lactulose 20 GM/30 ML UDC PO SCH (09:00)
[2023-12-14] MEDS ORDERED: Potassium Chl 20MEQ/Water100ML 100 ML IV SCH (10:00)
[2023-12-14] MEDS ORDERED: CIPR500 PO (11:33)
[2023-12-14] MEDS ORDERED: VISBIOME 112.51 EACH PO (11:34)
[2023-12-14] MEDS ORDERED: K-Dur20 MEQ PO (11:35)
--- NOTE | 2023-12-14 13:14 | NUR ---
PHYSICIAN CONTACT CONTACTED DR DOLAN WITH TELEMETRY CONCERNS OF V TACH AND EPISODES OF SVT. STATED TO CONTINUE TO MONITOR UNLESS SYMPTOMATIC. PATIENT ASYMPTOMATIC WITH EACH EPISODE. CARES ONGOING.
[2023-12-14 13:49] LABS: SARS-Cov-2 (COVID-19) PCR, MMC NEGATIVE (NEGATIVE)
--- NOTE | 2023-12-14 17:56 | NUR ---
DISHCHARGE SUMMARY PATIENT SET TO DISCHARGE WITH [facility]. IV'S REMOVED PRIOR WITHOUT COMPLICATION. DÍAZ IN PLACE DRAINING FREELY, SHANI URINE. REPORT CALLED TO ALICIA AT [facility]. DISCHARGE PACKET TO SEND WITH TRANSPORT. VERBAL ORDER PLACED ON DISCHARGE INSTRUCTIONS FOR RENACIDIN TO RESUME USUAL DOSE PER DR GAMEZ.
== END 2023-12-14 21:05 | DRG 698 ==
LOC: ER 13:43 → PCU 18:48 → MEDS 12-13 02:03
PROVIDERS: Emergency Medicine; Family Medicine; Internal Medicine; Nurse Practitioner Acute Care; Student in an Organized Health Care Education/Training Program; ADMIT Student in an Organized Health Care Education/Training Program
DX: T83.511A Infection and inflammatory reaction due to indwelling urethral catheter, initial encounter (principal); A41.9 Sepsis, unspecified organism; R65.21 Severe sepsis with septic shock; F11.20 Opioid dependence, uncomplicated; E87.20 Acidosis, unspecified; N39.0 Urinary tract infection, site not specified; K76.82 Hepatic encephalopathy; I10 Essential (primary) hypertension; E87.6 Hypokalemia; K74.60 Unspecified cirrhosis of liver; Z74.01 Bed confinement status; B95.2 Enterococcus as the cause of diseases classified elsewhere; B96.1 Klebsiella pneumoniae [K. pneumoniae] as the cause of diseases classified elsewhere; K75.81 Nonalcoholic steatohepatitis (NASH); E78.5 Hyperlipidemia, unspecified; F32.A Depression, unspecified; K21.9 Gastro-esophageal reflux disease without esophagitis; Y84.6 Urinary catheterization as the cause of abnormal reaction of the patient, or of later complication, without mention of misadventure at the time of the procedure
CPT/HCPCS: 0241U; 36415; 51702; 71045; 80053; 80202; 81001; 82140; 82248; 82947; 83605; 83735; 84100; 84132; 84145; 85025; 85027; 87040; 87077; 87086; 87186; 87507; 93005; 93010; 94760; 97110; 97162; 97166; 97530; A9270; J0456; J0696; J1650; J2405; J3370; J3475; J3480; J7030; J7040; J7050; J7060; U0002

== ENCOUNTER 2024-01-26 11:31 | Emergency (ER) | payer MEDICARE, OTHER ==
[~2024-01-26] VITALS: Ht 175.3 cm; Wt 127.0 kg
[~2024-01-26 11:31] MED LIST changes: +K-Dur20 MEQ PO; +VISBIOME 112.51 EACH PO
[2024-01-26] MEDS ORDERED: FentaNYL Citrate 50 MCG/ML 2 ML Injection IV ONE (12:45)
[2024-01-26 13:10] LABS: BASOPHILS ABSOLUTE AUTO 0.06 K/mm3 (0.00-0.23); BASOPHILS PERCENT AUTO 0 % (0-2); EOSINOPHILS ABSOLUTE AUTO 0.13 K/mm3 (0.00-0.68); EOSINOPHILS PERCENT AUTO 1 % (0-6); Hematocrit 34.5 % (33.0-51.0); Hemoglobin 11.7 g/dL (11.5-16.0); IMMATURE GRAN ABSOLUTE AUTO 0.21 K/mm3 (0.00-0.10); IMMATURE GRAN PERCENT AUTO 1 % (0-1); LYMPHOCYTES ABSOLUTE AUTO 1.69 K/mm3 (0.84-5.20); LYMPHOCYTES PERCENT AUTO 11 % (21-46); MONOCYTES ABSOLUTE AUTO 1.02 K/mm3 (0.16-1.47); MONOCYTES PERCENT AUTO 7 % (4-13); Mean Corpuscular HGB 37.5 pg (26.0-34.0); Mean Corpuscular HGB Conc 33.9 g/dL (31.5-36.5); Mean Corpuscular Volume 111 fL (80-100); Mean Platelet Volume 8.5 fL (9.1-12.4); NEUTROPHILS ABSOLUTE AUTO 12.37 K/mm3 (1.96-9.15); NEUTROPHILS PERCENT AUTO 80 % (41-73); Platelet Count 101 K/mm3 (150-400); RDW Coefficient Variation 15.8 % (11.7-14.2); RDW Standard Deviation 64.1 fL (35.1-46.3); Red Blood Cell Count 3.12 M/mm3 (3.80-5.20); White Blood Cell Count 15.48 K/mm3 (4.00-11.30)
[2024-01-26 13:39] LABS: Albumin, Blood 1.6 g/dL (3.4-5.0); Albumin/Globulin Ratio 0.4 (0.8-1.8); Bilirubin, Total 5.6 mg/dL (0.1-1.0); Bun/Creatinine Ratio 25.7 (12.0-20.0); Calcium, Blood 8.2 mg/dL (8.5-10.1); Creatinine, Blood 0.74 mg/dL (0.40-1.00); Globulin, Blood 4.1 g/dL (2.2-4.0); Potassium, Blood 4.1 mmol/L (3.5-5.5); Total Protein, Blood 5.7 g/dL (6.4-8.2)
== END 2024-01-26 15:52 | disposition home or self-care (01) ==
LOC: ER 11:31
PROVIDERS: Student in an Organized Health Care Education/Training Program
DX: M54.9 Dorsalgia, unspecified (principal); G89.29 Other chronic pain; F11.20 Opioid dependence, uncomplicated; M25.551 Pain in right hip; I10 Essential (primary) hypertension; E11.9 Type 2 diabetes mellitus without complications; F17.210 Nicotine dependence, cigarettes, uncomplicated
CPT/HCPCS: 72193; 80053; 85025; 96374-59; 99284-25; J3010; Q9967

== ENCOUNTER 2024-02-05 13:51 | Inpatient (IN) | payer MEDICARE, OTHER ==
[~2024-02-05] VITALS: Ht 167.6 cm; Wt 146.1 kg
[2024-02-05] MEDS ORDERED: NS 1,000 ML IV SCH ×3 (14:10→20:00)
[2024-02-05] MEDS ORDERED: Piperacillin/Tazobactam Sod 4.5 GM in NS 100 ML IV ONE (14:15)
[2024-02-05 14:18] LABS: BASOPHILS ABSOLUTE AUTO 0.08 K/mm3 (0.00-0.23); BASOPHILS PERCENT AUTO 0 % (0-2); EOSINOPHILS ABSOLUTE AUTO 0.07 K/mm3 (0.00-0.68); EOSINOPHILS PERCENT AUTO 0 % (0-6); IMMATURE GRAN ABSOLUTE AUTO 1.29 K/mm3 (0.00-0.10); IMMATURE GRAN PERCENT AUTO 4 % (0-1); LYMPHOCYTES ABSOLUTE AUTO 1.21 K/mm3 (0.84-5.20); LYMPHOCYTES PERCENT AUTO 3 % (21-46); MONOCYTES ABSOLUTE AUTO 1.89 K/mm3 (0.16-1.47); MONOCYTES PERCENT AUTO 5 % (4-13); Mean Corpuscular HGB 38.3 pg (26.0-34.0); Mean Corpuscular HGB Conc 34.5 g/dL (31.5-36.5); Mean Corpuscular Volume 111 fL (80-100); Mean Platelet Volume 8.5 fL (9.1-12.4); NEUTROPHILS ABSOLUTE AUTO 30.88 K/mm3 (1.96-9.15); NEUTROPHILS PERCENT AUTO 87 % (41-73); NRBC ABSOLUTE 0.04 K/mm3 (0.00-0.02); NRBC Auto 0.1 /100 WBC (0.0-0.2); Platelet Count 177 K/mm3 (150-400); RDW Coefficient Variation 17.9 % (11.7-14.2); RDW Standard Deviation 70.9 fL (35.1-46.3); Red Blood Cell Count 2.61 M/mm3 (3.80-5.20); White Blood Cell Count 35.42 K/mm3 (4.00-11.30)
[2024-02-05 14:35] LABS: Albumin, Blood 1.7 g/dL (3.4-5.0); Albumin/Globulin Ratio 0.4 (0.8-1.8); Bilirubin, Total 9.8 mg/dL (0.1-1.0); Bun/Creatinine Ratio 18.2 (12.0-20.0); Calcium, Blood 8.8 mg/dL (8.5-10.1); Creatinine, Blood 1.37 mg/dL (0.40-1.00); Globulin, Blood 4.3 g/dL (2.2-4.0); Magnesium, Blood 1.8 mg/dL (1.6-2.4); Potassium, Blood 3.9 mmol/L (3.5-5.5)
[2024-02-05 14:57] LABS: Source, Urine Foley catheter
[2024-02-05 15:03] LABS: Appearance, Urine Cloudy (Clear); Blood, Urine 5+ (Neg); Color, Urine Amber (P-Yellow); Glucose Qualitative, Urine Neg (Neg); Ketones, Urine 1+ (Neg); Leukocyte Esterase, Urine 3+ (Neg); Nitrite, Urine Pos (Neg); Protein, Urine 2+ (Neg); Specific Gravity, Urine 1.015 (1.003-1.022); Urobilinogen, Urine 2+ (Normal)
[2024-02-05 15:03] LABS: International Normalized Ratio 2.4; Prothrombin Time Results 24.1 Sec (9.7-11.5)
[2024-02-05 15:04] LABS: Bilirubin, Urine 3+ (Neg)
[2024-02-05 15:06] LABS: Bacteria Many /hpf; Yeast/Fungi Urine Many /hpf
[2024-02-05 15:07] LABS: Squamous Epithelial Cells Mod /hpf (Few)
[2024-02-05] MEDS ORDERED: OXYC5 PO (15:29)
[2024-02-05] MEDS ORDERED: OxyCODONE HCL 5 MG TAB PO ONE (15:55)
[2024-02-05] MEDS ORDERED: OxyCODONE HCL 5 MG TAB PO PRN (16:35)
[2024-02-05] MEDS ORDERED: FentaNYL Citrate 50 MCG/ML 2 ML Injection IV PRN (16:35)
[2024-02-05] MEDS ORDERED: TiZANidine HCl 4 MG Tab PO PRN (16:35)
[2024-02-05] MEDS ORDERED: Prochlorperazine Edisylate 10 mg Vial IV PRN (16:35)
[2024-02-05] MEDS ORDERED: Lactulose 20 GM/30 ML UDC PO SCH (17:00)
[2024-02-05 17:51] VITALS: BP 119/59
[2024-02-05] MEDS ORDERED: Ampicillin Sod/Sulbactam Sod 3 GM in NS 100 ML IV SCH (18:00)
[2024-02-05] MEDS ORDERED: URSO300 PO (18:06)
[2024-02-05] MEDS ORDERED: MISCSOL PO (18:10)
[2024-02-05] MEDS ORDERED: SULTRIDS PO (18:12)
[2024-02-05] MEDS ORDERED: ACET500 PO (18:15)
[2024-02-05] MEDS ORDERED: MELA3 PO (18:16)
[2024-02-05] MEDS ORDERED: MIRALAX17 GM PO (18:17)
[2024-02-05] MEDS ORDERED: Norco 5-325 Ta1 EACH PO (18:18)
--- NOTE | 2024-02-05 18:20 | NUR ---
DR HINES NOTIFIED OF SKIN ASSESSMENT / WOUNDS / PHOTOGRAPHS
--- NOTE | 2024-02-05 19:18 | NUR ---
SUMMARY Assumed care of pt on arrival to PCU 18 from emergency department at 1740. Slid from ED gurney to PCU bed using slider sheet and 5 staff. Changed from personal clothing into gown. Pt had several pink boarder foam dressings. All dressing removed. Wounds underneath cleaned and redressed. Dr Robison notified of wounds. Photographs placed in chart. SpO2 90% or greater RA. SR per monitor. Pt's spouse in to see patient, update provided. Pt A&O x 2, does not know exact date but knows its January 2024. Tolerating prescribed diet well without signs of aspiration.
[2024-02-05 19:22] LABS: Source, Urine Foley catheter
[2024-02-05 19:25] LABS: Appearance, Urine Cloudy (Clear); Blood, Urine 4+ (Neg); Color, Urine Amber (P-Yellow); Glucose Qualitative, Urine Neg (Neg); Ketones, Urine 1+ (Neg); Leukocyte Esterase, Urine 3+ (Neg); Nitrite, Urine Pos (Neg); Protein, Urine 2+ (Neg); Urobilinogen, Urine 1+ (Normal)
[2024-02-05 19:27] VITALS: BP 116/98
[2024-02-05 19:33] LABS: Bilirubin, Urine 2+ (Neg)
[2024-02-05 19:40] LABS: Bacteria Many /hpf; Yeast/Fungi Urine Many /hpf
[2024-02-05 19:41] LABS: Squamous Epithelial Cells Rare /hpf (Few)
[2024-02-05] MEDS ORDERED: RifAXIMin 550 MG Tablet PO SCH (21:00)
[2024-02-05] MEDS ORDERED: Lactobacil 2-S.Thermo-Bifido 1 1 Cap PO SCH (21:00)
[2024-02-05] MEDS ORDERED: Cholestyramine 4 GM PKT PO SCH (21:00)
[2024-02-05] MEDS ORDERED: Sennosides 8.6 MG Tab PO SCH (21:00)
[2024-02-05] MEDS ORDERED: Gabapentin 100 MG Cap PO SCH (21:00)
[2024-02-05 23:05] VITALS: BP 106/64
[2024-02-06] VITALS (53 sets, daily range): BP systolic 51–119; BP diastolic 31–97
[2024-02-06 03:50] LABS: Base Excess Venous -4.2 mmol/L; Bicarbonate Venous 20.9 mmol/L (24.0-30.0); PCO2 Venous 34.4 mmHg (38-42); pH Blood Venous 7.39 (7.34-7.37)
[2024-02-06] MEDS ORDERED: NS 500 ML IV ONE ×4 (04:00→15:50)
[2024-02-06 04:18] LABS: BASOPHILS ABSOLUTE AUTO 0.04 K/mm3 (0.00-0.23); BASOPHILS PERCENT AUTO 0 % (0-2); EOSINOPHILS ABSOLUTE AUTO 0.02 K/mm3 (0.00-0.68); EOSINOPHILS PERCENT AUTO 0 % (0-6); Hematocrit 24.2 % (33.0-51.0); Hemoglobin 8.2 g/dL (11.5-16.0); IMMATURE GRAN ABSOLUTE AUTO 0.48 K/mm3 (0.00-0.10); IMMATURE GRAN PERCENT AUTO 2 % (0-1); LYMPHOCYTES ABSOLUTE AUTO 0.79 K/mm3 (0.84-5.20); LYMPHOCYTES PERCENT AUTO 3 % (21-46); MONOCYTES ABSOLUTE AUTO 1.44 K/mm3 (0.16-1.47); MONOCYTES PERCENT AUTO 5 % (4-13); Mean Corpuscular HGB 38.1 pg (26.0-34.0); Mean Corpuscular HGB Conc 33.9 g/dL (31.5-36.5); Mean Corpuscular Volume 113 fL (80-100); Mean Platelet Volume 8.8 fL (9.1-12.4); NEUTROPHILS ABSOLUTE AUTO 23.97 K/mm3 (1.96-9.15); NEUTROPHILS PERCENT AUTO 90 % (41-73); Platelet Count 116 K/mm3 (150-400); RDW Coefficient Variation 18.1 % (11.7-14.2); RDW Standard Deviation 72.4 fL (35.1-46.3); Red Blood Cell Count 2.15 M/mm3 (3.80-5.20); White Blood Cell Count 26.74 K/mm3 (4.00-11.30)
[2024-02-06 04:21] LABS: Albumin, Blood 1.4 g/dL (3.4-5.0); Albumin/Globulin Ratio 0.4 (0.8-1.8); Bilirubin, Total 8.9 mg/dL (0.1-1.0); Bun/Creatinine Ratio 18.8 (12.0-20.0); Creatinine, Blood 1.6 mg/dL (0.40-1.00); Free Thyroxine 0.81 ng/dL (0.70-1.60); Globulin, Blood 3.7 g/dL (2.2-4.0); Magnesium, Blood 1.9 mg/dL (1.6-2.4); Percent Saturation 70.1 % (15.0-50.0); Potassium, Blood 3.9 mmol/L (3.5-5.5); Total Protein, Blood 5.1 g/dL (6.4-8.2)
[2024-02-06] MEDS ORDERED: Midodrine 5 MG Tab PO PRN (04:25)
--- NOTE | 2024-02-06 05:58 | NUR ---
SHIFT SUMMARY PT A&OX3-4, ABLE TO MAKE NEEDS KNOWN. PT WITH MUMBLED SPEECH BUT ANSWERS QUESTIONS APPROPRIATELY. VSS, AFEBRILE, SPO2 >93% RA. PT DENIES SOB OR CP. PT WITH HYPOTENSION THIS SHIFT, SBP 80 S, MAP <60. 500ML BOLUS AND MIDODRINE ORDERED PER RESIDENT. PT REPORTS CHRONIC HYPOTENSION WITH SBP IN THE 90 S REGULARLY. CHRONIC PAIN MEDICATED PER EMAR. CHRONIC DÍAZ IN PLACE DRAINING ORANGE URINE TO GRAVITY. DRESSING TO LOWER BACK/ R BUTTOCK C/D/I. FLUIDS INFUSING PER EMAR. PT IS RESTING QUIETLY IN BED, CALL LIGHT WITHIN REACH, BREATHING EVEN AND UNLABORED.
--- NOTE | 2024-02-06 08:14 | NUR ---
CARE ASSUMPTION UPON CARE ASSUMPTION, PT ALERT, ABLE TO ANSWER QUESTIONS APPROPRIATELY. SP02>90% ON RA. TELEMETRY SHOWS NSR, HR MOSTLY 80'S. BP SOFT, SEE VITALS, 60'S SBP. ANALYTIC MANAGER IN ROOM, CALLED MD HINES. MD HINES W/ ORDERS FOR 500 ML BOLUS NS, MIDODRINE GIVEN PRN. FLUIDS CURRENTLY INFUSING PER BOLUS ORDERS. WILL CONTINUE TO MONITOR VITALS. ICU ANALYTIC MANAGER, NOTIFIED WELL.
[2024-02-06] MEDS ORDERED: Spironolactone 50 MG Tab PO SCH (09:00)
[2024-02-06] MEDS ORDERED: CefTRIAXone Sodium 2,000 MG in NS 100 ML IV SCH (09:00)
[2024-02-06] MEDS ORDERED: DAPTOmycin 360 MG in NS 50 ML IV SCH (09:00)
[2024-02-06] MEDS ORDERED: Sertraline HCl 50 MG Tab PO SCH (09:00)
[2024-02-06] MEDS ORDERED: TraMADol HCl 50 MG Tab PO PRN (15:55)
--- NOTE | 2024-02-06 16:00 | NUR ---
PT IS ALERT, ORIENTED TO SELF, FAMILY, LOCATION AND DISCOMFORT LEVEL. PT IS HEAVILY FOCUSED ON HER PAIN AND REPOSITIONING. SHE NEEDS FREQUENT REMINDERS OF HER NEED TO LAY SUPINE D/T HYPOTENSION. REVIEWED CODE STATUS OPTIONS WITH PT AND FAMILY. EVEN THOUGH PT DEFERRED QUESTIONS TO HER SPOUSE, TATA. PT ANSWERED CARE PLANNING QUESTIONS HERSELF. PT, SPOUSE AND NIECE ALL DECIDED ON DNR WITH SELECTIVE MEDICAL INTERVENTIONS. TELEPHONE ORDER RCV'D TO CHANGE FROM FULL CODE TO DNR. POLST FORM HANGING AT PT ROOM, PENDING PROVIDER SIGNATURE. AT TIME OF VISIT PT'S PAIN IS NOT WELL MANAGED. RECEIVED TELEPHONE ORDER FOR TRAMADOL. PRIMARY RN UPDATED.
--- NOTE | 2024-02-06 16:02 | NUR ---
SPOUSE CONTACTED AND UPDATED THAT PT WILL BE TRANSFERED TO ICU.
--- NOTE | 2024-02-06 16:42 | NUR ---
TRANSFER SUMMARY PT A&O, ABLE TO MAKE NEEDS KNOWN. SP02>90% ON RA. TELEMETRY SHOWS NSR, HR 80'S. PT HYPOTENSIVE MOST OF SHIFT. 500 ML NS BOLUS PER EMAR X3. PT C/O OF PAIN, TRAMADOL GIVEN PER EMAR X1. HEATING PAD APPLIED TO R FLANK. WARM BLANKETS GIVEN. PT HAD LG INCONTINENT LOOSE STOOL. BED BATH, LINEN CHANGE. DÍAZ CATHETER DRAINING ORANGE URINE TO GRAVITY. POSITIVE BLOOD CULTURES TODAY, SEE RESULTS, RESULTS CALLED TO MD HINES. ABX INFUSED PER EMAR. FAMILY IN ROOM MOST OF DAY. CURRENT BP MAP NOT >60. ACCORDION REPAIRER CALLED MD HINES. PT TO TRANSFER TO ICU. REPORT GIVEN TO ASSISTANT. FAMILY AND PT NOTIFIED. PT TO BE XFERRED TO ICU 03.
--- NOTE | 2024-02-06 17:18 | NUR ---
PT ARRIVES TO ICU VIA BED AND LIFT USED TO TRANSFER TO ICU BED. PT CRIES OUT IN PAIN, SHE SAYS HER BACK, HER HIP, HER FOOT, MULTIPLE BRUISES NOTED OVER HER ARMS AND LEGS, CRIES OUT IN PAIN WITH ANY TOUCH OR MOVEMENT. BP INITIALLY VERY LOW, REPEATS IMPROVED. HEART RATE SINUS, LUNGS CLEAR AND DIMINISHED T/O, HEART TONES DISTANT, DIFFICULT TO HEAR. HERE TO CONSULT ON PATIENT. PT PLACED ON PRECAUTIONS FOR MRSA D/T HISTORY OF AND POSITIVE CULTURE RESULTS TODAY. TALKING ON PHONE/IPAD, TAKING IN LEMON-PALA COLA.
[2024-02-06] MEDS ORDERED: Albumin Human 50 ML IV ONE (17:30)
--- NOTE | 2024-02-06 18:32 | NUR ---
SUMMARY: RUTH HAD A DOSE OF ALBUMIN THIS EVENING AFTER ARRIVAL TO ICU. BP LABILE, PT REFUSED DINNER. PT TAKING IN FLUIDS, USING IPHONE AND IPAD. NO FURTHER CHANGES.
[2024-02-06] MEDS ORDERED: Lactulose 20 GM/30 ML UDC PO SCH (21:00)
[2024-02-06 21:35] LABS: Albumin, Blood 1.5 g/dL (3.4-5.0); Albumin/Globulin Ratio 0.4 (0.8-1.8); Bilirubin, Total 7.9 mg/dL (0.1-1.0); Bun/Creatinine Ratio 21.2 (12.0-20.0); Creatinine, Blood 1.37 mg/dL (0.40-1.00); Globulin, Blood 3.7 g/dL (2.2-4.0); Potassium, Blood 3.7 mmol/L (3.5-5.5); Total Protein, Blood 5.2 g/dL (6.4-8.2)
--- NOTE | 2024-02-06 22:24 | NUR ---
ASSUMED CARE CARE WAS ASSUMED AT APPROX. 1900. PT A/O x3, ABLE TO ANSWER QUESTIONS APPROPRIATELY. PT ABLE TO FOLLOW COMMANDS. PT ENDORSES PAIN, REPOSITIONING AND MEDICATING PER EMAR. PT ON RA, O2 SATS > 90%. CARDIAC MONITORING REFLECTS NSR, HR 70s-80s. SBP 90s. PG AND PIV SL. CHRONIC DÍAZ IN PLACE, DRAINING ORANGE URINE. SCDs IN PLACE.
[2024-02-07] VITALS (19 sets, daily range): BP systolic 65–117; BP diastolic 37–76
[2024-02-07 03:30] LABS: BASOPHILS ABSOLUTE AUTO 0.04 K/mm3 (0.00-0.23); BASOPHILS PERCENT AUTO 0 % (0-2); EOSINOPHILS ABSOLUTE AUTO 0.15 K/mm3 (0.00-0.68); EOSINOPHILS PERCENT AUTO 1 % (0-6); Hematocrit 25.7 % (33.0-51.0); Hemoglobin 9.1 g/dL (11.5-16.0); IMMATURE GRAN ABSOLUTE AUTO 0.85 K/mm3 (0.00-0.10); IMMATURE GRAN PERCENT AUTO 3 % (0-1); LYMPHOCYTES ABSOLUTE AUTO 1.36 K/mm3 (0.84-5.20); LYMPHOCYTES PERCENT AUTO 5 % (21-46); MONOCYTES ABSOLUTE AUTO 1.96 K/mm3 (0.16-1.47); MONOCYTES PERCENT AUTO 8 % (4-13); Mean Corpuscular HGB 38.4 pg (26.0-34.0); Mean Corpuscular HGB Conc 35.4 g/dL (31.5-36.5); Mean Platelet Volume 8.4 fL (9.1-12.4); NEUTROPHILS ABSOLUTE AUTO 21.61 K/mm3 (1.96-9.15); NEUTROPHILS PERCENT AUTO 83 % (41-73); NRBC ABSOLUTE 0.02 K/mm3 (0.00-0.02); NRBC Auto 0.1 /100 WBC (0.0-0.2); Platelet Count 160 K/mm3 (150-400); RDW Coefficient Variation 18.1 % (11.7-14.2); RDW Standard Deviation 68.6 fL (35.1-46.3); Red Blood Cell Count 2.37 M/mm3 (3.80-5.20); White Blood Cell Count 25.97 K/mm3 (4.00-11.30)
[2024-02-07 03:41] LABS: Mean Corpuscular Volume 108 fL (80-100)
[2024-02-07 04:00] LABS: Albumin, Blood 1.6 g/dL (3.4-5.0); Albumin/Globulin Ratio 0.4 (0.8-1.8); Bilirubin, Total 8.6 mg/dL (0.1-1.0); Bun/Creatinine Ratio 22.7 (12.0-20.0); Calcium, Blood 7.9 mg/dL (8.5-10.1); Creatinine, Blood 1.19 mg/dL (0.40-1.00); Magnesium, Blood 1.8 mg/dL (1.6-2.4); Potassium, Blood 3.6 mmol/L (3.5-5.5); Total Protein, Blood 5.6 g/dL (6.4-8.2)
--- NOTE | 2024-02-07 05:05 | NUR ---
SHIFT SUMMARY NO ACUTE CHANGES THIS SHIFT. PT REMAINS A/O X3-4, ABLE TO ANSWER ORIENTATION QUESTIONS APPROPRIATELY BUT WILL SAY RANDOM THINGS LIKE SPEAKING OF A "BLACK BEAD" OR A "FEATHER". PT ENDORSED LOWER BACK PAIN T/O SHIFT. MEDICATED PT PER EMAR AND REPOSITIONED. PT REMAINS ON RA, O2 SATS > 90%. CARDIAC MONITORING REFLECTS NSR, HR 80s. BP SOFT, MEDICATED WITH MIDODRINE THIS SHIFT PER EMAR. PG TO MYNOR AND PIV TO RAC SL. DÍAZ PATENT AND DRAINING ORANGE URINE.
[2024-02-07] MEDS ORDERED: Tamsulosin HCl 0.4 MG Cap PO ONE (09:00)
--- NOTE | 2024-02-07 10:13 | NUR ---
RUTH HAS QUIETED AND IS RESTING. FOR THE MAJORITY OF THE MORNING SHE HAD BEEN MOANING AND CRYING OUT IN PAIN. TATA VISITED BRIEFLY, HELPED WITH BITES OF YOGURT AND ENCOURAGEMENT OF DRINKING, MEDICATION TAKING. SHE HAS GONE NOW AND RUTH SEEMS TO BE QUIETED AND RESTFUL AT THIS TIME.
--- NOTE | 2024-02-07 10:52 | NUR ---
PROVIDER NOTIFIED: PT'S RIGHT A/C PIV SITE LEAKING, TEGADERM REMOVED FOR REMOVAL OF CATHETER AND TOP LAYER OF SKIN REMOVED WITH THE TAPE. PHONED AND NOTIFIED OF NEW WOUND. DRESSED WITH NON-ADHERENT DRESSING AND COBAN FOR COMFORT. IV SITE NOT ACTIVELY BLEEDING. FAMILY IN ROOM.
--- NOTE | 2024-02-07 11:35 | NUR ---
OUT OF TOWN FAMILY VISITING, PT ASKING TO BE FED BY FAMILY. REQUESTS PLASTIC SILVERWARE RATHER THAN TRADITIONAL. REFUSES TO BE SAT UPRIGHT IN BED TO ACCOM- MODATE EATING BETTER. CONTINUES TO COMPLAIN OF PAIN IN BACK, HIP AND FOOT. BRUISING NOTED OVER THE LEFT HEEL/FOOT AREA. PAS REMAIN ON AND IN USE. LARGE BM WITH CLEAN UP DONE. HOLLERS IN PAIN THE ENTIRE TIME. MINIMAL ASSIST WITH TURNING. BP MAP >65.
[2024-02-07] MEDS ORDERED: Midodrine 5 MG Tab PO SCH (14:00)
--- NOTE | 2024-02-07 15:47 | NUR ---
ADJUSTMENT IN POSITION MADE AGAIN, FREQUENT ADJUSTMENTS MADE TO HELP WITH PAIN AND ASSIST IN DECREASING PRESSURE TO BUTTOCKS. LEGS REPOSITIONED OFTEN WELL. TATA HERE AT THIS TIME, TRYING TO ENCOURAGE HER.
[2024-02-07] MEDS ORDERED: TiZANidine HCl 4 MG Tab PO SCH (16:00)
--- NOTE | 2024-02-07 17:21 | NUR ---
WENT IN TO CHECK ON PATIENT AND TO REPOSITION, SHE IS SLEEPING WELL AND TALKING IN HER SLEEP. SHE DOESN'T RESPOND TO THIS RN OR WHEN THE COMMODE IS FLUSHED. BPM >60 EVEN WHILST SLEEPING. HEART RATE 90'S, SATS 95% ON ROOM AIR.
--- NOTE | 2024-02-07 18:24 | NUR ---
AFTER SLEEPING WELL AND BEING AWAKENED BY VISITING FAMILY MEMBERS REPEATED mBP < 60. ONE DOSE OF ALBUMIN ORDERED PER DISCUSSION WITH . LABS DRAWN PER 'S ORDERS. PT STATED WANTED TO RETURN TO HER "GOOD SLEEP".
[2024-02-07] MEDS ORDERED: Albumin (Human) 25gm/100ml 100 ML IV ONE (18:25)
[2024-02-07 18:49] LABS: Albumin, Blood 1.4 g/dL (3.4-5.0); Albumin/Globulin Ratio 0.4 (0.8-1.8); Bilirubin, Total 7.6 mg/dL (0.1-1.0); Bun/Creatinine Ratio 23.3 (12.0-20.0); Calcium, Blood 7.9 mg/dL (8.5-10.1); Creatinine, Blood 0.9 mg/dL (0.40-1.00); Globulin, Blood 3.6 g/dL (2.2-4.0); Magnesium, Blood 1.9 mg/dL (1.6-2.4); Potassium, Blood 3.5 mmol/L (3.5-5.5)
[2024-02-07] MEDS ORDERED: Albumin (Human) 12.5gm/250ml 250 ML IV SCH (19:35)
[2024-02-07] MEDS ORDERED: Heparin Sodium,Porcine 5,000 UNIT/0.5 ML SDV SC SCH (21:00)
[2024-02-08] VITALS (19 sets, daily range): BP systolic 76–107; BP diastolic 45–81
[2024-02-08 03:31] LABS: BASOPHILS ABSOLUTE AUTO 0.02 K/mm3 (0.00-0.23); BASOPHILS PERCENT AUTO 0 % (0-2); EOSINOPHILS ABSOLUTE AUTO 0.09 K/mm3 (0.00-0.68); EOSINOPHILS PERCENT AUTO 1 % (0-6); Hematocrit 22.1 % (33.0-51.0); Hemoglobin 7.4 g/dL (11.5-16.0); IMMATURE GRAN ABSOLUTE AUTO 0.16 K/mm3 (0.00-0.10); IMMATURE GRAN PERCENT AUTO 1 % (0-1); LYMPHOCYTES ABSOLUTE AUTO 0.85 K/mm3 (0.84-5.20); LYMPHOCYTES PERCENT AUTO 7 % (21-46); MONOCYTES ABSOLUTE AUTO 0.78 K/mm3 (0.16-1.47); MONOCYTES PERCENT AUTO 7 % (4-13); Mean Corpuscular HGB 37.8 pg (26.0-34.0); Mean Corpuscular HGB Conc 33.5 g/dL (31.5-36.5); Mean Platelet Volume 8.6 fL (9.1-12.4); NEUTROPHILS ABSOLUTE AUTO 9.83 K/mm3 (1.96-9.15); NEUTROPHILS PERCENT AUTO 84 % (41-73); Platelet Count 112 K/mm3 (150-400); RDW Standard Deviation 72.8 fL (35.1-46.3); Red Blood Cell Count 1.96 M/mm3 (3.80-5.20); White Blood Cell Count 11.73 K/mm3 (4.00-11.30)
[2024-02-08 03:36] LABS: Mean Corpuscular Volume 113 fL (80-100)
[2024-02-08 03:48] LABS: Albumin, Blood 1.8 g/dL (3.4-5.0); Albumin/Globulin Ratio 0.6 (0.8-1.8); Bilirubin, Total 7.9 mg/dL (0.1-1.0); Calcium, Blood 8.1 mg/dL (8.5-10.1); Creatinine, Blood 0.82 mg/dL (0.40-1.00); Globulin, Blood 3.2 g/dL (2.2-4.0); Potassium, Blood 3.5 mmol/L (3.5-5.5)
--- NOTE | 2024-02-08 05:48 | NUR ---
SHIFT SUMMARY PATIENT SLEPT MOST OF NIGHT. ASSISTED IN TURNING PATIENT WHEN SHE REQUESTED IT. PATIENT HAS CHRONIC PAIN AND EVERY MOVE SHE MOANS OUT. A&OX2 DOES TALKING TO SELF VERY OFTEN, EVEN WHEN SLEEPING. SBP BASELINE 80'S, URINARY CATHETER DRAININ GTO GRAVITY SHANI COLORED URINE. 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 CALL LIGHT WITHIN REACH.
--- NOTE | 2024-02-08 07:30 | NUR ---
ASSUMED CARE. TOOK REPORT FROM JOSE ANTONIO CARRANZA RN. PT RESTING W/ EYES CLOSED AND MOANING SOFTLY. SYSTOLIC BP 80S AND MAP >60. HR IN 80-90S. CONTINUOUS CARDIAC MONITORING IN PLACE. PT SKIN IS ECCHYMOTIC ON BILATERAL ARMS. PT HAS BILATERAL SCDS ON CALVES. DÍAZ PATENT AND DRAINING ORANGE URINE TO GRAVITY. BED IN LOWEST POSITION.
[2024-02-08 08:40] LABS: Hematocrit 23.8 % (33.0-51.0); Hemoglobin 8.2 g/dL (11.5-16.0)
[2024-02-08] MEDS ORDERED: Tamsulosin HCl 0.4 MG Cap PO SCH (09:00)
[2024-02-08] MEDS ORDERED: NS 250 ML IV PRN (09:00)
[2024-02-08] MEDS ORDERED: NS 1,000 ML IV SCH (13:00)
[2024-02-08] MEDS ORDERED: Potassium Phosphate Dibasic 15 MM in Dextrose 5% 250 ML IV STA (14:51)
--- NOTE | 2024-02-08 15:33 | NUR ---
Pt resting and able to answer most questions denies headaches or nausea. Called to meeet with physician and family to review plan of care and prognosis. Review with patients spouse, sister and niece her current medical needs and medications. Physician reviewed her labs and her pronosis and how her organ systems are functioning. After extensive review or going through the events of the last year plan is to speak with Dr. Levi. They value his opinion and care. They would like him to help with decison of hospice. We reviewed hospice care in detail. they would like a chplian to see the pt tomorrow. They would like to speak to hospice. They need to decide where she will stay for hospice. The want a little more information so they can plan. Therputic time with family reminiscing they would like to bring her dog in to visit. will update staff.
--- NOTE | 2024-02-08 18:20 | NUR ---
WOUND NOTIFICATION PT HAD WOUND ON RIGHT UPPER FOREARM PRESENT ON ARRIVAL. WHILE REMOVING COBAND DURING BED BATH WOUND WAS VISUALIZED. NEW PICTURE IN CHART. DR. DAFNE FRAGA NOTIFIED BY TELEPHONE.
--- NOTE | 2024-02-08 18:33 | NUR ---
SHIFT SUMMARY. PT IS RESTING W/ EYES CLOSED. SHE HAS BEEN ALERT AND ORIENTED TO SELF, PLACE, AND FAMILY. SHE HAS INTERMITTENT CONFUSION AND REQUIRES FREQUENT REORIENTATION TO SITUATION OR CONVERSATIONS SHE WAS HAVING. SHE HAS NS RUNNING AT 200ML/HR IN HER L-UPPER ARM MIDLINE. IT IS PATENT, DRAWS AND FLUSHES WELL. HER SPO2 HAS BEEN >94% ON RA. SYSTOLIC BP RANGES BETWEEN 80-90 AND MAP BETWEEN 55-60 W/ A GOAL OF 60. SHE HAS HAD 2 LARGE BM, LOOSE LIQUIDY BROWN STOOL. SHE IS INCONTENT OF STOOL. HER DÍAZ CATHETER HAS BEEN PATENT AND DRAINING ORANGE YELLOW URINE TO GRAVITY. PT HAS FRAGILE ECCHYMOTIC SKIN, W/ BRUISING. PHOTOS IN CHART OF WOUNDS. FAMILY HAS BEEN AT BEDSIDE DURING THE DAY. PT HAS HAD A POOR APPETITE, SHE EATS 25% OF MEALS OR LESS. SHE WILL ONLY DRINK LEMON STOCKBRIDGE SODA WATER AND EAT ICE. BED IN LOWEST POSITION, CALL LIGHT IN REACH.
--- NOTE | 2024-02-08 20:44 | NUR ---
ASSUMED CARE CARE WAS ASSUMED AT APPROX. 1900. PT A/O x2-3. ABLE TO FOLLOW COMMANDS, ENDORSES PAIN TO LOWER BACK. PT CONTINUOUSLY GROANS. PT ON RA, O2 SATS > 90%. CARDIAC MONITORING REFLECTS NSR, HR 60s. SBP 90s-100s WITH MAP GOAL > 60. PG TO MYNOR PATENT, POSITIONAL. NS INFUSING @ 200 mL/HR. CHRONIC DÍAZ PATENT AND DRAINING ORANGE URINE.
[2024-02-09] VITALS (26 sets, daily range): BP systolic 67–98; BP diastolic 39–83
[2024-02-09 03:30] LABS: BASOPHILS ABSOLUTE AUTO 0.02 K/mm3 (0.00-0.23); EOSINOPHILS ABSOLUTE AUTO 0.16 K/mm3 (0.00-0.68); EOSINOPHILS PERCENT AUTO 1 % (0-6); IMMATURE GRAN ABSOLUTE AUTO 0.25 K/mm3 (0.00-0.10); LYMPHOCYTES ABSOLUTE AUTO 1.01 K/mm3 (0.84-5.20); LYMPHOCYTES PERCENT AUTO 9 % (21-46); MONOCYTES ABSOLUTE AUTO 0.92 K/mm3 (0.16-1.47); NEUTROPHILS ABSOLUTE AUTO 9.25 K/mm3 (1.96-9.15)
[2024-02-09 03:32] LABS: BASOPHILS PERCENT AUTO 0 % (0-2); Hematocrit 22.8 % (33.0-51.0); Hemoglobin 7.8 g/dL (11.5-16.0); IMMATURE GRAN PERCENT AUTO 2 % (0-1); MONOCYTES PERCENT AUTO 8 % (4-13); Mean Corpuscular HGB 37.9 pg (26.0-34.0); Mean Corpuscular HGB Conc 34.2 g/dL (31.5-36.5); Mean Corpuscular Volume 111 fL (80-100); Mean Platelet Volume 8.9 fL (9.1-12.4); NEUTROPHILS PERCENT AUTO 80 % (41-73); Platelet Count 117 K/mm3 (150-400); RDW Coefficient Variation 17.6 % (11.7-14.2); RDW Standard Deviation 71.8 fL (35.1-46.3); Red Blood Cell Count 2.06 M/mm3 (3.80-5.20); White Blood Cell Count 11.82 K/mm3 (4.00-11.30)
[2024-02-09 03:52] LABS: Albumin, Blood 1.7 g/dL (3.4-5.0); Albumin/Globulin Ratio 0.5 (0.8-1.8); Bilirubin, Total 5.9 mg/dL (0.1-1.0); Bun/Creatinine Ratio 20.2 (12.0-20.0); Calcium, Blood 7.9 mg/dL (8.5-10.1); Creatinine, Blood 0.69 mg/dL (0.40-1.00); Globulin, Blood 3.1 g/dL (2.2-4.0); Magnesium, Blood 1.9 mg/dL (1.6-2.4); Potassium, Blood 3.6 mmol/L (3.5-5.5); Total Protein, Blood 4.8 g/dL (6.4-8.2)
--- NOTE | 2024-02-09 05:53 | NUR ---
SHIFT SUMMARY PT A/O X2-3, ABLE TO ANSWER MOST QUESTIONS APPROPRIATELY. NO ACUTE CHANGES THIS SHIFT. PT REMAINS ON RA, O2 SATS > 90%. CARDIAC MONITORING REFLECTS NSR, HR 60s. ALBUMIN STARTED THIS SHIFT PER EMAR FOR HYPOTENSION. MAP GOAL > 60. PG TO MYNOR PATENT. DÍAZ PATENT AND DRAINING TO GRAVITY. PT HAD LARGE, LIQUID INCONTINENT BM THIS SHIFT.
[2024-02-09] MEDS ORDERED: Potassium Phosphate Dibasic 15 MM in Dextrose 5% 250 ML IV STA (10:47)
--- NOTE | 2024-02-09 10:47 | NUR ---
SHIFT ASSESSMENT ASSUMED CARE OF PT @ 0700. PT SLEEPING, AWAKENS TO VERBAL STIMULI. A&OX3. SKIN APPEARS JAUNDICED. BEDBOUND AT BASELINE, QUITE WEAK CURRENTLY. MOVING UPPER EXTREMITIES BUT REALLY UNABLE TO ASSIST WITH MOVING LEGS. THIS NURSE ENCOURAGING PATIENT TO PERFORM SMALL EXERCISES BUT PT TOO WEAK. BP REMAINS LABILE, MAP IN 50'S-60'S, SECOND BAG OF ALBUMIN ADMINISTERED THIS AM. DÍAZ CATH PATENT, DRAINING DARK URINE. TOLERATING SMALL AMNTS OF FOOD AND LEMON ABSENTEE-SHAWNEE DRINK. SPOUSE AT BEDSIDE. THIS NURSE CONTACTED DR. KING THIS AM, PLAN TO MEET WITH FAMILY.
[2024-02-09] MEDS ORDERED: Meropenem 1,000 MG in NS 100 ML IV SCH (13:00)
[2024-02-09] MEDS ORDERED: NS 1,000 ML IV ONE (13:00)
[2024-02-09] MEDS ORDERED: Fluconazole 100MG/Iso-Sod 50ML 50 ML IV SCH (13:00)
[2024-02-09] MEDS ORDERED: Doxycycline Hyclate 100 MG in Dextrose 5% 250 ML IV SCH (13:00)
[2024-02-09] MEDS ORDERED: Midodrine 5 MG Tab PO SCH (14:00)
[2024-02-09] MEDS ORDERED: NS 1,000 ML IV SCH (14:00)
--- NOTE | 2024-02-09 14:00 | NUR ---
UPDATE PT TRANSFERRED TO PCU FROM ICU. HR AFIB. BP SOFT, BUT MAP >60. O2 SATS >90% ON RA. PT ALERT AND ORIENTED. NS INFUSING PER ORDERS. DÍAZ PATENT AND DRAINIG. PT AND FAMILY ORIENTED TO NEW ROOM AND UNIT.
--- NOTE | 2024-02-09 14:15 | NUR ---
"Spiritual Care Callback | Pt./Family request Pt. has just been recently moved from ICU3 to PCU10 when she welcomes my visit. Pt. is pleasant and alert. No family are present when I visit. Pt. displays evidencee of mild anxiety about the duration of her illness and verbalized wanting to be able to go home. Listen with empathy and a calming presence and seek to normalize the Pt. experience. Pt. verbalized that she is non practicing sabianism so we considered matters of brigid and belief. Prayed prayers of intervention on behalf of the Pt. and her family. Pt. verbalized gratitude for the spiritual care visit and welcomed this parts counter sales person to return."
--- NOTE | 2024-02-09 15:47 | NUR ---
Per discussion between Palliative, patient and family yesterday, Ct Manager was called today for a visit with the patient. Pt's and sister report the leading firefighter visit went well, and they want to wait another day "to see how she does" before meeting again with palliative care. Pt's has PC office number, and states she will call tomorrow.
[2024-02-09] MEDS ORDERED: Albumin (Human) 25gm/100ml 100 ML IV SCH (21:00)
[2024-02-10] VITALS (12 sets, daily range): BP systolic 76–140; BP diastolic 43–75
[2024-02-10 03:52] LABS: BASOPHILS ABSOLUTE AUTO 0.03 K/mm3 (0.00-0.23); BASOPHILS PERCENT AUTO 0 % (0-2); EOSINOPHILS ABSOLUTE AUTO 0.12 K/mm3 (0.00-0.68); EOSINOPHILS PERCENT AUTO 1 % (0-6); Hematocrit 23.9 % (33.0-51.0); Hemoglobin 8.1 g/dL (11.5-16.0); IMMATURE GRAN ABSOLUTE AUTO 0.35 K/mm3 (0.00-0.10); IMMATURE GRAN PERCENT AUTO 3 % (0-1); LYMPHOCYTES ABSOLUTE AUTO 0.87 K/mm3 (0.84-5.20); LYMPHOCYTES PERCENT AUTO 6 % (21-46); MONOCYTES ABSOLUTE AUTO 1.09 K/mm3 (0.16-1.47); MONOCYTES PERCENT AUTO 8 % (4-13); Mean Corpuscular HGB 38.2 pg (26.0-34.0); Mean Corpuscular HGB Conc 33.9 g/dL (31.5-36.5); Mean Corpuscular Volume 113 fL (80-100); Mean Platelet Volume 8.8 fL (9.1-12.4); NEUTROPHILS PERCENT AUTO 82 % (41-73); Platelet Count 101 K/mm3 (150-400); RDW Standard Deviation 73.7 fL (35.1-46.3); Red Blood Cell Count 2.12 M/mm3 (3.80-5.20); White Blood Cell Count 13.76 K/mm3 (4.00-11.30)
[2024-02-10 04:16] LABS: Albumin, Blood 2.2 g/dL (3.4-5.0); Albumin/Globulin Ratio 0.7 (0.8-1.8); Bilirubin, Total 6.4 mg/dL (0.1-1.0); Bun/Creatinine Ratio 16.5 (12.0-20.0); Calcium, Blood 7.9 mg/dL (8.5-10.1); Creatinine, Blood 0.67 mg/dL (0.40-1.00); Magnesium, Blood 1.7 mg/dL (1.6-2.4); Phosphorus, Blood 2.1 mg/dL (2.5-4.9); Potassium, Blood 3.4 mmol/L (3.5-5.5); Total Protein, Blood 5.2 g/dL (6.4-8.2)
[2024-02-10 04:32] LABS: International Normalized Ratio 2.49; Prothrombin Time Results 24.9 Sec (9.7-11.5)
--- NOTE | 2024-02-10 05:23 | NUR ---
SHIFT NOTE: PT A/OX2-3 WITH INTERMITTENT CONFUSION AND VISUAL HALLUCINATIONS. SHE HAS SOFT BPS WITH MAPS RANGING 50-60S. HR 60-70 DENIES CHEST PAIN/PRESSURE. SHE REQUIRED 2L NC TO MAINTAIN SPO2>90% AND HAS NOW TITRATED BACK DOWN TO ROOM AIR. HER DÍAZ IS DRAINING TO GRAVITY. SHE HAD BEEN HAVING FREQUENT LIQUID BMS, RECTAL TUBE PLACED AND IS DRAINING TO GRAVITY WELL. STAFF HAS REPOSITIONED HER Q1 PER PATIENT REQUEST. NS RUNNING PER EMAR. WILL CONTINUE TO MONITOR AND REPORT TO ONCOMING RN
[2024-02-10] MEDS ORDERED: Potassium Phosphate Dibasic 20 MM in Dextrose 5% 500 ML IV STA (08:48)
[2024-02-10] MEDS ORDERED: Lactated Ringer's 1,000 ML IV ONE (09:00)
[2024-02-10] MEDS ORDERED: Lactated Ringer's 1,000 ML IV SCH (10:00)
[2024-02-10] MEDS ORDERED: Lactulose 20 GM/30 ML UDC PO SCH (13:00)
[2024-02-10] MEDS ORDERED: TRAM50 PO (13:16)
[2024-02-10] MEDS ORDERED: AMOX875 PO (13:17)
[2024-02-10] MEDS ORDERED: Diflucan100 MG PO (13:17)
[2024-02-10] MEDS ORDERED: MIDO5 PO (13:53)
[2024-02-10] MEDS ORDERED: SENN187 PO (13:53)
[2024-02-10] MEDS ORDERED: Flomax0.4 MG PO (13:54)
--- NOTE | 2024-02-10 14:51 | NUR ---
1ST VISIT: GOALS OF CARE: REVIEWED HOSPICE VS CONTINUING WITH CURRATIVE TREATMENT. 2ND VISIT: SUPPORTIVE VISIT WITH PT, AND NIECE. PT AND FAMILY HAVE MADE THE DECISION TO D/C HOME WITH HOSPICE. PT IS INSISTANT THAT SHE WANTS TO BE AT HOME. PT/FAMILY EDUCATED ON THE RISKS OF PT TRANSPORTING HOME D/T HER MEDICAL FRAILTY. PT TOLD HER , SHE WANTS TO GO HOME ANYWAY. FAMILY EXPRESS WANTING TO SUPPORT PT WISHES OF GOING HOME AND VERBALIZED UNDERSTANDING THE RISKS. THIS PC RN EDUCATED FAMILY ON HOW HOSPICE WORKS AND WHAT HOSPICE WOULD LOOK LIKE GOING HOME. FAMILY VERY ENGUAGED AND ASKED QUESTIONS APPROPRIATLY. NOTIFIED CM OF PT/FAMILY REQUEST FOR D/C HOME WITH HOSPICE. UPDATE PROVIDED TO PRIMARY RN AND PROVIDER.
[2024-02-10] MEDS ORDERED: Fluconazole 100 MG Tab PO SCH (15:15)
--- NOTE | 2024-02-10 16:57 | NUR ---
Spiritual care visit conducted. Therapeutic guitar music and singing performed with good soothing and calming effect.
[2024-02-10] MEDS ORDERED: Acetaminophen 325 MG TABLET PO PRN (17:00)
--- NOTE | 2024-02-10 18:28 | NUR ---
SHIFT SUMMARY PT ALERT, ORIENTED X3; ANXIOUS AT TIMES, LABILE MOOD WITH EPISODES OF CRY WITH FAMILY. PT REPOSITIONED FRQUENTLY T/O SHIFT FOR COMFORT. PT REPORTING LOWER BACK PAIN AND SPASMS, MEDICATED PER EMAR. PT SOB WITH ACTIVITY, DESATURATION WHILE LYING FLAT ON BACK, PLACED ON O2. TELE SINUS/SINUS TACH 90-120'S, BP SOFT, PROVIDED MIDORINE AND ALBUMIN PER ORDERS. EDEMA NOTED. LOW GRADE FEVER NOTED, CHILLS AND BODY ACHE NOTED, MEDIATED PER EMAR, NOTED IMPROVEMENT AND APPEARS TO BE RESTING. PLANS FOR DISCHARGE HOME ON HOSPICE TOMORROW AM. NO OTHER ACUTE CHANGES NOTED. WILL CONTINUE TO MONITOR.
--- NOTE | 2024-02-10 22:08 | NUR ---
Yell of care- Recieved report from Sade- Patient's MAP above 55 at shift change (approx. 1900), family in room, and patient is resting in bed- making loud, moaning noises. Midodrine and Albumin administered per eMAR, blood pressure monitored hourly throughout the shift. Patient remains on oxygen 2-4L. Around 2129, call placed to the resident, Erin to possibly obtain comfort care orders- states she will review patients chart.
[2024-02-10] MEDS ORDERED: Albuterol 2.5 MG/3 ML VIAL INH PRN (23:55)
[2024-02-11] VITALS: BP 81/51
[2024-02-11] MEDS ORDERED: Midodrine 5 MG Tab PO ONE (00:25)
--- NOTE | 2024-02-11 00:36 | NUR ---
Resident not wanting to place comfort orders in at this time. Patients BP trending down- another call placed to resident for additional dose of midodrine and albuterol for patient per the family's request- resident agreed and placed orders. PRN albumin infused to assist with BP. Additional family members arrived to room at 0030- now currently 6 visitors in room (past visiting hours)- and asking for additional chairs. This RN spoke to spouse about having the two people staying overnight like originally planned but not having this be a long visit for the others- spouse slammed door in this RNs face and said "the patient is dying and you want to send the visitors away? call security then". Another family member then came up and talked to the charge lpn about transitioning patient to comfort care and allowing patient to be more comfortable, allowing more visitors without any restrictions, and was able to right the situation. Family member states she will talk to the patients' spouse and let us know of their decision.
[2024-02-11 01:00] VITALS: BP 83/68
--- NOTE | 2024-02-11 01:16 | NUR ---
THIS RN AT BEDSIDE TO ADMINISTER PO MIDODRINE. PATIENT RECEIVED ALBUTEROL TREATMENT, INCREASED WORK OF BREATHING RR 30s. EXPIRATORY WHEEZE DECREASED. DISCUSSED INCIDENT WITH VISITORS (SEE PRIMARY RN, PORTER's DOCUMENTATION). DISCUSSED CURRENT POLICY REGARDING VISITORS STAYING OVERNIGHT - DISCUSSED THAT IT WAS AN INCIDENCE OF MISCOMMUNICATION ADDITIONAL VISITORS ARE ABLE TO VISIT BUT ARE UNABLE TO STAY OVERNIGHT DUE TO CURRENT VISITING POLICY. NIECE AND SPOUSE REMAIN AT BEDSIDE PREVIOUSLY ALLOWED BY TELEPHONE SWITCHBOARD OPERATOR, CARE TEAM. SPOUSE REQUESTING ADDITIONAL INFORMATION REGARDING COMFORT CARE STATUS. PROVIDED EDUCATION REGARDING GOALS OF CARE WHEN PATIENT IS PLACED ON COMFORT CARE, INCLUDING MEDICATIONS AVAILABLE FOR SYMPTOM MANAGEMENT TO PROMOTE GREATER COMFORT. SPOUSE DEMONSTRATING GREATER UNDERSTANDING AND APPRECIATION FOR ADDITIONAL EDUCATION.
[2024-02-11 02:00] VITALS: BP 83/57
[2024-02-11 03:00] VITALS: BP 87/55
[2024-02-11 04:00] VITALS: BP 94/77
--- NOTE | 2024-02-11 05:54 | NUR ---
Shift summary- See previous notes for previous updates. Patient rested most of the night. Family did not want to give the patient her tizanidine at midnight- as they stated the patient was comfortable at that time. Selene did ask for pain medication around 3am and to be repositioned off of her hip- which turned into a complete bed change. Oxycodone was given for her pain- she was able to swallow the medication without issue and had good PO intake during the shift with staff and family assistance. Rectal tube remains in place- though there is some leakage around the tube. Harley catheter is also still in place, but had minimal output throughout the night. BP was soft throughout the night- MAP was above 55 most of the night (see previous notes for intervention updates). Family did not alert staff on a decision to change patient to comfort care, at this time. Spouse stayed overnight in the room, extended family left early this morning around 0230- and came back around 0445.
--- NOTE | 2024-02-11 08:39 | NUR ---
NURSE NOTE PATIENT FAMILY REQUESTED PAIN MEDICATION FOR PATIENT THIS RN PULLED FENTANYL 50MCG FROM THE PYXSIS W/ PRECEPTOR XAVIER MURRAY AND NAVDEEP RN TO WITNESS. THIS RN WASTED 25 MCG TO ATTEMPT TO GIVE THE PATIENT HE ORDERED DOSE OF 25 MCG. ONCE ENTERING THE ROOM FAMILY REFUSED FENTANYL AND REQUESTED PO OXYCODONE 5MG. XAVIER MURRAY AND NAVDEEP RN WASTED THE REMAINING 25 MCG OF FENTANYL. PO OXYCODONE 5MG GIVEN TO PT. FAMILY REMAINS AT BEDSIDE AT THIS TIME.
[2024-02-11 10:00] VITALS: BP 88/49
--- NOTE | 2024-02-11 11:26 | NUR ---
SUPPORTIVE VISIT PT IS DROWSY. RESPONDS TO HER NAME. DIFFUSE EDEMA NOTED. ALL EXTREMETIES ARE WARM TO THE TOUCH. NO MOTTLING NOTED AT THIS TIME. PT DENIES PAIN DURING THIS VISIT. PT'S SPOUSE, 2 NIECES AND PRIMARY RN AT BEDSIDE. CONTINUED GENTLE EDUCATION ON COMFORT MEASURES VS CURRATIVE MEASURES. SPOUSE EXPRESSES DIFFICULTY WITH NOT DOING ANY CURRATIVE MEASURES. SHE WAS ABLE TO RESTATE THE PURPOSE OF COMFORT CARE/HOSPICE. HOWEVER, SPOUSE DOES WANT PT TO D/C ON HOSPICE AND KEEP FOCUS ON COMFORT. PT AND SPOUSE WANT PT TO BE AT HOME FOR EOL CARE. SPOUSE VERBALIZES UNDERSTANDING THE RISKS OF TRANSFERING PT HOME AND THAT PT COULD PASS IN TRANSPORT. THERAPUTIC LISTENING PROVIDED. ENCOURAGED LOW STIMULI ENVIRONMENT THIS MORNING PT NEEDS TO CONSERVE ENERGY FOR TRANSPORT. FAMILY AGREEABLE TO LOW STIMULI. THEY LEFT TO RETREIVE PT BELONGINGS AND RX'S FROM [facility]. FAMILY EXPRESSES GRATITUDE FOR THE CARE PT HAS RCV'D WHILE IN THE HOSPITAL. PC TO REMAIN AVAILABLE.
--- NOTE | 2024-02-11 11:38 | NUR ---
DC'D HOME ON HOSPICE VIA GURNEY TRANSPORT. FAMILY AT BEDSIDE. RX'S FAXED TO [facility] [place].
== END 2024-02-11 11:20 | disposition hospice, home (50) | DRG 871 ==
LOC: ER 13:51 → MEDS 16:30 → ICUE 16:30 → PCU 16:30 → ICUE 02-06 17:09 → PCU 02-09 13:56
PROVIDERS: Emergency Medicine; Family Medicine; Internal Medicine; Student in an Organized Health Care Education/Training Program; ADMIT Internal Medicine
DX: A41.1 Sepsis due to other specified staphylococcus (principal); I81 Portal vein thrombosis; R65.21 Severe sepsis with septic shock; T83.511A Infection and inflammatory reaction due to indwelling urethral catheter, initial encounter; N39.0 Urinary tract infection, site not specified; N17.9 Acute kidney failure, unspecified; R18.8 Other ascites; Z51.5 Encounter for palliative care; Z66 Do not resuscitate; E87.1 Hypo-osmolality and hyponatremia; I13.0 Hypertensive heart and chronic kidney disease with heart failure and stage 1 through stage 4 chronic kidney disease, or unspecified chronic kidney disease; I50.32 Chronic diastolic (congestive) heart failure; I85.10 Secondary esophageal varices without bleeding; K76.6 Portal hypertension; Z68.42 Body mass index [BMI] 45.0-49.9, adult; F11.20 Opioid dependence, uncomplicated; E87.21 Acute metabolic acidosis; N20.2 Calculus of kidney with calculus of ureter; K76.82 Hepatic encephalopathy; E83.39 Other disorders of phosphorus metabolism; K74.60 Unspecified cirrhosis of liver; N18.9 Chronic kidney disease, unspecified; B96.1 Klebsiella pneumoniae [K. pneumoniae] as the cause of diseases classified elsewhere; E11.22 Type 2 diabetes mellitus with diabetic chronic kidney disease; F17.210 Nicotine dependence, cigarettes, uncomplicated; D63.1 Anemia in chronic kidney disease; E66.01 Morbid (severe) obesity due to excess calories; D50.9 Iron deficiency anemia, unspecified; M81.0 Age-related osteoporosis without current pathological fracture; L29.9 Pruritus, unspecified; K31.89 Other diseases of stomach and duodenum; K75.81 Nonalcoholic steatohepatitis (NASH); E86.1 Hypovolemia; Z79.899 Other long term (current) drug therapy; Z79.2 Long term (current) use of antibiotics; Y84.6 Urinary catheterization as the cause of abnormal reaction of the patient, or of later complication, without mention of misadventure at the time of the procedure; Z98.890 Other specified postprocedural states; Z86.14 Personal history of Methicillin resistant Staphylococcus aureus infection; Z79.01 Long term (current) use of anticoagulants; Z90.49 Acquired absence of other specified parts of digestive tract; Z90.89 Acquired absence of other organs
CPT/HCPCS: 36415; 51798; 70450; 74177; 80053; 81001; 82140; 82728; 82803; 83540; 83550; 83605; 83690; 83735; 83880; 84100; 84439; 85014; 85018; 85025; 85610; 87040; 87077; 87086; 87186; 93005; 93010; 93308; 93321; 94640; 94664; 94762; 96365-59; 99285-25; A9270; J0295; J0696; J0878; J1450; J1644; J2185; J2543; J3010; J7030; J7040; J7050; J7060; J7120; P9045; P9047; Q9967